=== PATIENT | female | born 1960 | race Caucasian/White ===

== ENCOUNTER 2023-02-28 10:37 | Outpatient (OUT) | payer BC, SELFPAY ==
[2023-02-28 11:00] LABS: Estimated Average Glucose 189 mg/dL; Glycohemoglobin A1C 8.2 % (4.5-6.2)
== END 2023-02-28 10:38 | disposition home or self-care (01) ==
LOC: LAB 10:37
PROVIDERS: PCP Internal Medicine; Visit Provider Internal Medicine
DX: E11.65 Type 2 diabetes mellitus with hyperglycemia (principal)
CPT/HCPCS: 36415; 83036

== ENCOUNTER 2023-07-09 08:59 | Outpatient (OUT) | payer BC, SELFPAY ==
--- OUTSIDE RECORDS SUMMARY | 2023-07-09 09:08 | XMS_ITS | CCD ---
Author Organization [facility] Care Team Providers Care Wax Bleacher Name Role Phone JAMES SMILEY Admitting Unavailable BALL, JAMES Attending Unavailable BALL, JAMES Primary Care Unavailable BALL, JAMES Consulting Unavailable UZMA, VINNIE Admitting Unavailable UZMA, VINNIE Attending Unavailable DWIGHT, JAMES Primary Care Unavailable UZMA, VINNIE Consulting Unavailable UZMA, VINNIE Admitting Unavailable UZMA, VINNIE Attending Unavailable DWIGHT, JAMES Primary Care Unavailable UZMA, VINNIE Consulting Unavailable Dwight, James Unavailable Allergies Allergy Classification Reported Allergen(s) Allergy Type Date of Onset Reaction(s) Facility (1 source) Leucine Drug Allergy [facility] Medications Current Medications Medication Drug Class(es) Dates Sig (Normalized) Sig (Original) 0.25 MG, 0.5 MG Dose 3 ML semaglutide 0.68 MG/ML Pen Injector [Ozempic] (2 sources) Start: 03-05-2023 Ozempic (0.25 or 0.5 MG/DOSE) 2 MG/3ML 0.25MG Subcutaneous weekly for 28 days Feb, Active Accu Check Compact Drum for glucomete (2 sources) Accu Check Dwayne ct Drum for glucomete Use to test home BS transcutaneous qd for 30 days Active atorvastatin 40 mg oral tablet (4 sources) HMG-CoA Reductase Inhibitor take 1 tablet by mouth every twenty-four hours Atorvastatin Calcium 40 MG 1 tablet Orally Once a day Active 0.5 ml dulaglutide 3 mg/ml auto-injector (6 sources) GLP-1 Receptor Agonist inject 1.5 mg by subcutaneous injection every week Trulicity 1.5 MG/0.5ML 1.5mg Subcutaneous weekly Active levothyroxine sodium 0.088 mg oral tablet (11 sources) l-Thyroxine Levothyroxine So dium 88 MCG TAKE 1 (ONE) TABLET DAILY ON AN EMPTY STOMACH for 90 Active Levothyroxine So dium 88 MCG TAKE 1 (ONE) TABLET DAILY ON AN EMPTY STOMACH for 90 Active mounjaro 2.5 mg/0.5ml solution pen-injector (1 source) Start: 05-24-2023 Mounjaro 2.5 MG/0.5ML as directed Subcutaneous weekly for 28 days May, Active olmesartan medoxomil 20 mg oral tablet (7 sources) Angiotensin 2 Receptor Terrell Start: 08-20-2022 take 1 tablet by mouth every twenty-four hours Olmesartan Medoxomil 20 MG 1 tablet Orally Once a day for 30 days August, Active take 1 tablet by mouth once shelley y Olmesartan Medoxomil 40 MG TAKE 1 TABLET BY MOUTH EVERY DAY for 30 Active phentermine hydrochloride 37.5 mg oral tablet (6 sources) Sympathomimetic Amine Anorectic Start: 08-20-2022 take 1 tablet by mouth once daily before breakfast Adipex-P 37.5 MG 1 tablet before breakfast Orally Once a day for 30 days August, Active Start: 07-23-2022 take 1 tablet by obey th every twenty-four hours Adipex-P 37.5 MG 1 tablet Orally Once a day for 30 days Jul, Active Start: 06-25-2022 take 1 tablet by obey th every twenty-four hours Adipex-P 37.5 MG 1 tablet Orally Once a day for 30 days Jun, Active Problems Active Problems Problem Classification Problem Date Documented Da te Episodic/Chronic Coagulation and hemorrhagic disorders (20 sources) Immune thrombocytopenic purpura; Translations: [Immune thrombocytopenic purpura] Resolved: 0 Chronic Deficiency and other anemia (5 sources) Anemia; Translations: [Anemia, unspecified] Episodic Diabetes mellitus with complications (20 sources) Hyperglycemia due to type 2 diabetes mellitus; Translations: [Type 2 diabetes mellitus with hyperglycemia] Chronic Diabetes mellitus without complication (7 sources) Type 2 diabetes mellitus without complication; Translations: [Type 2 diabetes mellitus without complications] Chronic Diseases of white blood cells (16 sources) Leukopenia; Translations: [Decreased white blood cell count, unspecified] Chronic Disorders of lipid metabolism (20 sources) Mixed hyperlipidemia; Translations: [Mixed hyperlipidemia] Onset: 0 Chronic Essential hypertension (20 sources) Essential hypertension; Translations: [Essential (primary) hypertension] Chronic Nausea and vomiting (11 sources) Nausea; Translations: [Nausea] Episodic Osteoarthritis (16 sources) Localized, primary osteoarthritis of the pelvic region and thigh; Translations: [Unilateral primary osteoarthritis, left hip] Chronic Other circulatory disease (2 sources) Elevated blood-pressure reading, without diagnosis of hypertension Episodic Other gastrointestinal disorders (5 sources) Abnormal feces; Translations: [Other fecal abnormalities] Episodic Other nutritional; endocrine; and metabolic disorders (20 sources) Body mass index 30+ - obesity; Translations: [Obesity, unspecified] Chronic Other nutritional; endocrine; and metabolic disorders (2 sources) Obesity, unspecified Chronic Other nutritional; endocrine; and metabolic disorders (12 sources) Obesity; Translations: [Other obesity due to excess calories] Chronic Other nutritional; endocrine; and metabolic disorders (2 sources) Other obesity due to excess calories Chronic Other nutritional; endocrine; and metabolic disorders (1 source) Body mass index (BMI) 31.0-31.9, adult Chronic Other nutritional; endocrine; and metabolic disorders (1 source) Body mass index (BMI) 30.0-30.9, adult Chronic Other screening for suspected conditions (not mental disorders or infectious disease) (1 source) Encounter for screening mammogram for malignant neoplasm of breast Episodic Thyroid disorders (20 sources) Omar thyroiditis; Translations: [Autoimmune thyroiditis] Chronic Unclassified (3 sources) CONTACT W/AND (SUSP) EXPOS COVID-19; Translations: [CONTACT W/AND (SUSP) EXPOS COVID-19] Onset: 2 Past or Other Problems Problem Classification Problem Date Documented Da te Episodic/Chronic Acute bronchitis (5 sources) Acute bronchitis; Translations: [Acute bronchitis, unspecified] Onset: 06-14-2015 Episodic Other aftercare (5 sources) Therapeutic drug level - finding; Translations: [Encounter for therapeutic drug level monitoring] Onset: 12-16-2018 Episodic Other upper respiratory infections (5 sources) Acute maxillary sinusitis; Translations: [Acute maxillary sinusitis, unspecified] Onset: 06-14-2015 Episodic Sprains and strains (5 sources) Sprain of medial collateral ligament of knee; Translations: [Sprain of medial collateral ligament of right knee, initial encounter] Onset: 10-31-2018 Episodic Superficial injury; contusion (5 sources) Contusion of foot; Translations: [Contusion of unspecified foot, initial encounter] Onset: 12-17-2014 Episodic Unclassified (1 source) CONTACT W/AND (SUSP) EXPOS COVID-19; Translations: [CONTACT W/AND (SUSP) EXPOS COVID-19] Onset: 03-07-2022 Results Test Name Value Interpretation Reference Range Facility CBC AUTO DIFFon 06-25-2022 BASO # 0.0 103/ul Normal 0.0-0.1 [facility] Comment on above: Performed By: #### C BC #### [facility] [address] [address] [address] Lauren Matthews Basophils/100 WBC (Bld) 0.5 % Normal 0.2-2.0 [facility] Comment on above: Performed By: #### C BC #### [facility] [address] [place] [address] Dr. Lauren Matthews EO # 0.1 103/ul Normal 0.0-0.7 [facility] Comment on above: Performed By: #### C BC #### [facility] [address] [address] [address] Lauren Matthews Eosinophils/100 WBC (Bld) 2.4 % Normal 0.9-7.0 [facility] Comment on above: Performed By: #### C BC #### [facility] [address] [place] [address] Dr. Lauren Matthews Erythrocyte distribution width (RBC) [Ratio] 13.5 % Normal 11.0-15.0 [facility] Comment on above: Performed By: #### C BC #### [facility] [address] [place] [address] Dr. Lauren Matthews Hematocrit (Bld) [Volume fraction] 40.2 % Normal 36.0-48.0 [facility] Comment on above: Performed By: #### C BC #### [facility] [address] [place] [address] Dr. Lauren Matthews Hemoglobin (Bld) [Mass/Vol] 13.5 g/dL Normal 12.0-16.0 [facility] Comment on above: Performed By: #### C BC #### [facility] [address] [place] [address] Dr. Lauren Matthews IG # 0.01 10e3/ul Normal 0.00-0.03 [facility] Comment on above: Performed By: #### C BC #### [facility] [address] [place] [address] Dr. Lauren Matthews IG % 0.2 % Normal 0.0-0.5 [facility] Comment on above: Performed By: #### C BC #### [facility] [address] [place] [address] Dr. Lauren Matthews LYMPH # 1.2 103/ul Normal 1.2-3.8 [facility] Comment on above: Performed By: #### C BC #### [facility] [address] [place] [address] Dr. Lauren Matthews Lymphocytes/100 WBC (Bld) 28.5 % Normal 20.5-60.0 [facility] Comment on above: Performed By: #### C BC #### [facility] [address] [place] [address] Dr. Lauren Matthews MANUAL DIFF REQ NO Normal [facility] Comment on above: Performed By: #### C BC #### [facility] [address] [place] [address] Dr. Lauren Matthews MCH (RBC) [Entitic mass] 30.5 pg Normal 26.7-34.0 [facility] Comment on above: Performed By: #### C BC #### [facility] [address] [place] [address] Dr. Lauren Matthews MCHC (RBC) [Mass/Vol] 33.6 g/dL Normal 29.9-35.2 [facility] Comment on above: Performed By: #### C BC #### [facility] [address] [place] [address] Dr. Lauren Matthews MCV (RBC) [Entitic vol] 90.7 fL Normal 81.0-99.0 [facility] Comment on above: Performed By: #### C BC #### [facility] [address] [place] [address] Dr. Lauren Matthews MONO # 0.3 103/ul Normal 0.3-0.8 [facility] Comment on above: Performed By: #### C BC #### [facility] [address] [place] [address] Dr. Lauren Matthews Monocytes/100 WBC (Bld) 8.0 % Normal 1.7-12.0 [facility] Comment on above: Performed By: #### C BC #### [facility] [address] [place] [address] Dr. Lauren Matthews NEUT # 2.5 103/ul Normal 1.4-6.5 [facility] Comment on above: Performed By: #### C BC #### [facility] [address] [place] [address] Dr. Lauren Matthews Neutrophils/100 WBC (Bld) 60.4 % Normal 43.0-75.0 [facility] Comment on above: Performed By: #### C BC #### [facility] [address] [place] [address] Dr. Lauren Matthews Platelet mean volume (Bld) [Entitic vol] 12.1 fL Normal 9.5-13.5 [facility] Comment on above: Performed By: #### C BC #### [facility] [address] [place] [address] Dr. Lauren Matthews PLT 169 103/ul Normal 150-450 [facility] Comment on above: Performed By: #### C BC #### [facility] [address] [place] [address] Dr. Lauren Matthews RBC 4.43 106/ul Normal 4.20-5.40 [facility] Comment on above: Performed By: #### C BC #### [facility] [address] [place] [address] Dr. Lauren Matthews WBC 4.1 103/ul Normal 4.0-11.0 [facility] Comment on above: Performed By: #### C BC #### [facility] [address] [place] [address] Dr. Lauren Matthews Comprehensive Metabolic Pane claire 06-25-2022 Albumin [Mass/Vol] 4.438847 g/dL 3.4-5.0 g/dL N [facility] Other Calcium [Mass/Vol] 9.8526712 mg/dL 8.5-10.1 mg/ dL [facility] Other CO2 [Moles/Vol] 28.19884389 mmol/L 21.0-3 2.0 mmol/L [facility] Other Creatinine [Mass/Vol] 0.12044293 mg/dL 0.55-1.02 mg/dL [facility] Other Potassium [Moles/Vol] 4.22380662 mmol/L 3.5-5.1 mmol/L [facility] Other Protein [Mass/Vol] 7.022658 g/dL 6.4-8.2 g/dL N [facility] Other Urea nitrogen [Mass/Vol] 13.4693023 mg/dL 7.0-18.0 mg/dL [facility] Other Comprehensive Metabolic Panel see note [facility] Other Comprehensive Metabolic Panel 143 mmol/L 136-145 mmol/L [facility] Other Comprehensive Metabolic Panel 140 mg/dL Critically high 74-106 mg/dL [facility] Other Comprehensive Metabolic Panel >60 mL/min/1.73m2 >=60 mL/min/1.73m2 [facility] Other Comprehensive Metabolic Panel 0.5 mg/dL 0.2-1.0 mg/dL [facility] Other Comprehensive Metabolic Panel 3.2 g/dL [facility] Other GLYCOHEMOGLOBIN A1Con 2022 ADA RECOMMENDATION SEE BELOW Normal [facility] Comment on above: Result Comment: ADA RECOMMENDED LIMIT 4.0 - 6.0 ADA THERAPEUTIC TARGET < 7.0 ACTION SUGGESTED > 7.0 Performed By: #### A 1C #### [facility] [address] [place] [address] Dr. Lauren Matthews Glucose [Mass/Vol] 131 mg/dL Normal [facility] Comment on above: Performed By: #### A 1C #### [facility] [address] [address] [address] Lauren Matthews HbA1c (Bld) [Mass fraction] 6.2 % Normal 4.5-6.2 [facility] Comment on above: Performed By: #### A 1C #### [facility] [address] [address] [address] Lauren Matthews LIPID PROFILEon 06-25-2022 CHOL-HDL RATIO NORM SEE BELOW Normal [facility] Comment on above: Result Comment: 3.3 - 4.4 LOW RISK 4.4 - 7.1 AVERAGE RISK 7.1 - 11.0 MODERATE RISK >11.0 HIGH RISK Performed By: #### C MP, LIPID, TSH #### [facility] [address] [address] [address] Lauren Matthews Cholesterol [Mass/Vol] 218 mg/dL Critically high <=200 mg/dL [facility] Comment on above: Performed By: #### C MP, LIPID, TSH #### [facility] [address] [address] [address] Lauren Matthews Cholesterol in HDL [Mass/Vol] 47 mg/dL 40-60 mg/dL [facility] Comment on above: Performed By: #### C MP, LIPID, TSH #### [facility] [address] [address] [address] Lauren Matthews Cholesterol in LDL [Mass/Vol] 155.8 mg/dL Normal [facility] Comment on above: Performed By: #### C MP, LIPID, TSH #### [facility] [address] [address] [address] Lauren Matthews Cholesterol.total/Ch olesterol in HDL [Mass ratio] 4.6 {ratio} [facility] Comment on above: Performed By: #### C MP, LIPID, TSH #### [facility] [address] [address] [address] Lauren Matthews HDL NORMAL > or = 60 mg/dl - LOW CARDIOVASCULAR RISK <40 mg/dl - HIGH CARDIOVASCULAR RISK Normal [facility] Comment on above: Performed By: #### C MP, LIPID, TSH #### [facility] [address] [address] [address] Lauren Matthews LDL CALC NORMAL SEE BELOW Normal [facility] Comment on above: Result Comment: <100 mg/dl OPTIMAL 100 - 129 mg/dl NEAR OR ABOVE OPTIMAL 130 - 159 mg/dl BORDERLINE HIGH 160 - 189 mg/dl HIGH >190 mg/dl VERY HIGH Performed By: #### C MP, LIPID, TSH #### [facility] [address] [address] [address] Lauren Matthews Triglyceride [Mass/Vol] 76 mg/dL <=150 mg/dL [facility] Comment on above: Performed By: #### C MP, LIPID, TSH #### [facility] [address] [address] [address] Lauren Matthews VLDL CALC 15.2 mg/dL Normal [facility] Comment on above: Performed By: #### C MP, LIPID, TSH #### [facility] [address] [address] [address] Lauren Mathtews Lipid Panelon 06-25-2022 Lipid Panel > or = 60 mg/dl - LOW CARDIOVASCULAR RISK <40 mg/dl - HIGH CARDIOVASCULAR RISK [facility] Other Lipid Panel SEE BELOW [facility] Other Lipid Panel 155.8 mg/dL [facility] Other Lipid Panel 15.2 mg/dL [facility] Other PROF 14(COMP METB)on 023 Albumin [Mass/Vol] 4.0 g/dL Normal 3.4-5.0 [facility] Comment on above: Performed By: #### C MP, LIPID, TSH #### [facility] [address] [address] [address] Lauren Matthews Albumin/Globulin [Mass ratio] 1.3 {ratio} [facility] Comment on above: Performed By: #### C MP, LIPID, TSH #### [facility] [address] [address] [address] Lauren Matthews ALP [Catalytic activity/Vol] 62 U/L 46-116 U/L [facility] Comment on above: Performed By: #### C MP, LIPID, TSH #### [facility] [address] [address] [address] Lauren Matthews ALT [Catalytic activity/Vol] 19 U/L 14-59 U/L [facility] Comment on above: Performed By: #### C MP, LIPID, TSH #### [facility] [address] [address] [address] Lauren Matthews Anion gap [Moles/Vol] 13.6 mmol/L [facility] Comment on above: Performed By: #### C MP, LIPID, TSH #### [facility] [address] [place] [address] Dr. Lauren Matthews AST [Catalytic activity/Vol] 22 U/L 15-37 U/L [facility] Comment on above: Performed By: #### C MP, LIPID, TSH #### [facility] [address] [address] [address] Lauren Matthews Bilirubin [Mass/Vol] 0.5 mg/dL Normal 0.2-1.0 [facility] Comment on above: Performed By: #### C MP, LIPID, TSH #### [facility] [address] [place] [address] Dr. Lauren Matthews Calcium [Mass/Vol] 9.1 mg/dL Normal 8.5-10.1 [facility] Comment on above: Performed By: #### C MP, LIPID, TSH #### [facility] [address] [place] [address] Dr. Lauren Matthews Chloride [Moles/Vol] 105 mmol/L 98-107 mmol/L [facility] Comment on above: Performed By: #### C MP, LIPID, TSH #### [facility] [address] [place] [address] Dr. Lauren Matthews CO2 [Moles/Vol] 28.6 mmol/L Normal 21.0-32.0 [facility] Comment on above: Performed By: #### C MP, LIPID, TSH #### [facility] [address] [address] [address] Lauren Matthews Creatinine [Mass/Vol] 0.60 mg/dL Normal 0.55-1.02 [facility] Comment on above: Performed By: #### C MP, LIPID, TSH #### [facility] [address] [address] [address] Lauren Matthews EGFR-AF UGANDAN >60 Normal >=60 [facility] Comment on above: Performed By: #### C MP, LIPID, TSH #### [facility] [address] [address] [address] Lauren Matthews EGFR-NON AF UGANDAN >60 Normal >=60 [facility] Comment on above: Performed By: #### C MP, LIPID, TSH #### [facility] [address] [address] [address] Lauren Matthews Globulin (S) [Mass/Vol] 3.2 g/dL Normal [facility] Comment on above: Performed By: #### C MP, LIPID, TSH #### [facility] [address] [address] [address] Lauren Matthews Glucose [Mass/Vol] 140 mg/dL Critically high 74-106 [facility] Comment on above: Performed By: #### C MP, LIPID, TSH #### [facility] [address] [address] [address] Lauren Matthews Potassium [Moles/Vol] 4.2 mmol/L Normal 3.5-5.1 [facility] Comment on above: Performed By: #### C MP, LIPID, TSH #### [facility] [address] [address] [address] Lauren Matthews Protein [Mass/Vol] 7.2 g/dL Normal 6.4-8.2 [facility] Comment on above: Performed By: #### C MP, LIPID, TSH #### [facility] [address] [address] [address] Lauren Matthews Sodium [Moles/Vol] 143 mmol/L Normal 136-145 [facility] Comment on above: Performed By: #### C MP, LIPID, TSH #### [facility] [address] [place] [address] Dr. Lauren Matthews Urea nitrogen [Mass/Vol] 13.0 mg/dL Normal 7.0-18.0 [facility] Comment on above: Performed By: #### C MP, LIPID, TSH #### [facility] [address] [place] [address] Dr. Lauren Matthews Urea nitrogen/Creatinine [Mass ratio] 21.7 mg/mg [facility] Comment on above: Performed By: #### C MP, LIPID, TSH #### [facility] [address] [place] [address] Dr. Lauren Matthews TSHon 06-25-2022 TSH 0.916 uIU/mL Normal 0.358-3.740 [facility] Comment on above: Performed By: #### C MP, LIPID, TSH #### [facility] [address] [place] [address] Dr. Lauren Matthews [facility] SARS-CoV-2 (COVID-19) RNA PRAVIN+probe Ql (Unsp spec) Not detected Normal NOT DETECTED [facility] Comment on above: Result Comment: When diagnostic testing is negative, the possibility of a false negative should be considered in the context of a patient's recent exposures and the presence of clinical signs and symptoms consistent with SARS-CoV-2. This test is not yet approved or cleared by the [place] FDA. When there are no FDA-approved or cleared tests available, and other criteria are met, FDA can make tests available under an emergency access mechanism called an Emergency Use Authorization (EUA). The EUA for this test is supported by the [place] of Health and Human Service's declaration that circumstances exist to justify the emergency use of in vitro diagnostics for the detection and/or diagnosis of the virus that causes COVID-19. This EUA will remain in effect for the duration of the COVID-19 declaration justifying emergency of IVDs, unless it is terminated or revoked by the FDA (after which the test may no longer be used). Performed By: #### C VDTBH #### [facility] [address] [place] [address] Dr. Lauren Matthews ASYMPTOMATIC COVID-19 ANTIGE Non 01-15-2022 EUA Statement SEE BELOW Normal [facility] Comment on above: Result Comment: This test has not been FDA cleared or approved, but has been authorized by the FDA under an Emergency Use Authorization (EUA) for use by authorized laboratories certified under CLIA that meet the requirements to perform moderate or high complexity testing. This test has been authorized only for the detection of proteins from SARS-CoV-2, not for any other viruses or pathogens. The emergency use of this test is authorized for the duration of the declaration that circumstances exist justifying the authorization of emergency use of in vitro diagnostic tests for detection and/or diagnosis of Covid-19 under section 564(b)(1) of the Act, 21 U.S.C. 360bbb-3(b)(1), unless the declaration is terminated or authorization is revoked sooner. Performed By: #### C VDAGA #### [facility] [address] [place] [address] Dr. Lauren Matthews SARS-CoV-2 (COVID-19) RNA PRAVIN+probe Ql (Unsp spec) Negative Normal NEGATIVE [facility] Comment on above: Result Comment: Nega tive results are presumptive. They do not preclude infection and should not be used as the sole basis for treatment decisions. Additional confirmatory testing by a molecular method should be considered. Performed By: #### C VDAGA #### [facility] [address] [place], [place] [id number] Dr. Lauren Matthews Vital Signs Date Time Vital Sign Value Performing Clinician Facility 11-22-2022 11:30-0400 Body height 167.64 cm Knip Other [facility] Other 11-22-2022 11:30-0400 Body mass index (BMI) [Ratio] 30.92 kg/m2 [facility] Other [facility] Other 11-22-2022 11:30-0400 Body weight 86.91 kg James Ball Other [facility] Other 11-22-2022 11:30-0400 Diastolic blood pressure 91 mm[Hg] James Ball Other [facility] Other 11-22-2022 11:30-0400 Respiratory rate 12 /min James Ball Other [facility] Other 11-22-2022 11:30-0400 Systolic blood pressure 167 mm[Hg] James Ball Other [facility] Other 08-20-2022 12:30-0400 Body height 167.64 cm James Ball Other [facility] Other 08-20-2022 12:30-0400 Body mass index (BMI) [Ratio] 31.21 kg/m2 James Ball Other [facility] Other 08-20-2022 12:30-0400 Body weight 87.73 kg James Ball Other [facility] Other 08-20-2022 12:30-0400 Diastolic blood pressure 88 mm[Hg] James Ball Other [facility] Other 08-20-2022 12:30-0400 Respiratory rate 12 /min James Ball Other [facility] Other 08-20-2022 12:30-0400 Systolic blood pressure 167 mm[Hg] James Ball Other [facility] Other 07-23-2022 12:30-0400 Body height 167.64 cm James Ball Other [facility] Other 07-23-2022 12:30-0400 Body mass index (BMI) [Ratio] 30.92 kg/m2 James Ball Other [facility] Other 07-23-2022 12:30-0400 Body weight 86.91 kg James Ball Other [facility] Other 07-23-2022 12:30-0400 Diastolic blood pressure 82 mm[Hg] James Ball Other [facility] Other 07-23-2022 12:30-0400 Respiratory rate 12 /min James Ball Other [facility] Other 07-23-2022 12:30-0400 Systolic blood pressure 124 mm[Hg] James Ball Other [facility] Other 06-25-2022 13:30-0500 Body height 167.64 cm James Ball Other [facility] Other 06-25-2022 13:30-0500 Body mass index (BMI) [Ratio] 31.89 kg/m2 James Ball Other [facility] Other 06-25-2022 13:30-0500 Body weight 89.63 kg James Ball Other [facility] Other 06-25-2022 13:30-0500 Diastolic blood pressure 80 mm[Hg] James Ball Other [facility] Other 06-25-2022 13:30-0500 Respiratory rate 12 /min James Ball Other [facility] Other 06-25-2022 13:30-0500 Systolic blood pressure 122 mm[Hg] James Ball Other [facility] Other Encounters Encounter Date Encounter Type Care Provider Facility Start: 05-24-2023 End: 05-24-2023 ambulatory James Ball Other [facility] Other Start: 05-24-2023 Telephone encounter James Ball [facility] Start: 03-07-2023 End: 03-07-2023 ambulatory James Ball Other [facility] Other Start: 03-07-2023 Telephone encounter James Ball [facility] Start: 02-28-2023 End: 02-28-2023 ambulatory James Ball Other [facility] Other Start: 02-28-2023 Telephone encounter James Ball [facility] Start: 02-26-2023 End: 02-26-2023 ambulatory James Ball Other [facility] Other Start: 02-26-2023 Telephone encounter James Ball [facility] Start: 11-22-2022 End: 11-22-2022 ambulatory James Ball Other [facility] Other Start: 11-22-2022 Office outpatient vi sit 15 minutes James Ball [facility] Start: 10-09-2022 End: 10-09-2022 ambulatory James Ball Other [facility] Other Start: 10-09-2022 Telephone encounter James Ball [facility] Start: 08-20-2022 End: 08-20-2022 ambulatory James Ball Other [facility] Other Start: 08-20-2022 Office outpatient vi sit 15 minutes James Ball [facility] Start: 07-23-2022 End: 07-23-2022 ambulatory James Ball Other [facility] Other Start: 07-23-2022 Office outpatient vi sit 15 minutes James Ball [facility] Start: 06-26-2022 Encounter for genera l adult medical examination without abnormal findings JAMES BALL [facility] Start: 06-25-2022 End: 06-26-2022 Encounter for general adult medical examination without abnormal findings JAMES SMILEY Facility:[facility] Start: 06-25-2022 Periodic preventive med est patient 40-64yrs James Smiley [facility] Start: 06-25-2022 End: 06-26-2022 ambulatory JAMES SMILEY Facility:[facility] Start: 06-23-2022 End: 06-23-2022 ambulatory James Smiley Other [facility] Other Start: 06-23-2022 Encounter for genera l adult medical examination without abnormal findings James Smiley [facility] Start: 06-23-2022 Telephone encounter James Smiley [facility] Start: 06-22-2022 End: 06-22-2022 ambulatory James Smiley Other [facility] Other Start: 06-22-2022 Telephone encounter James Smiley [facility] Start: 03-07-2022 End: 03-08-2022 ambulatory VINNIE GUSMAN Facility:[facility] Start: 01-15-2022 End: 01-15-2022 ambulatory VINNIE GUSMAN Facility:[facility] Start: 05-17-2021 Adult health examination James Smiley Other [facility] Other Procedures Date Procedure Procedure Detail Performing Clinician Depression screening Scarlett Smiley Other Screening for malign ant neoplasm of breast James Smiley Other Immunizations Immunization Date Immunization Notes Care Provider Maira carrington 02-23-2013 tetanus and diphther ia toxoids, adsorbed, preservative free, for adult use (5 Lf of tetanus toxoid and 2 Lf of diphtheria toxoid) James Smiley Other [facility] Other Payers Date Payer Category Payer Unknown [id number] 2019 Unknown [id number] 1960 Unknown [id number] 1960 Unknown [id number] 1960 Unknown [id number] Social History Date Type Detail Facility Sex Assigned At [facility] Other Clinical Notes 06-23-2022 to 05-24-2023 Note Date & Type Note Facility 05-24-2023 Evaluation note Encounter Date Diagnosis Assessment Notes May, Controlled type 2 diabetes mellitus with hyperglycemia, without long-term current use of insulin (ICD-10 - E11.65) [facility] Other 11-16-2023 Evaluation note* Encounter Date Diagnosis Assessment Notes Treatment Notes Treatment Clinical Notes Feb, Type 2 diabetes mellitus with hyperglycemia, without long-term current use of insulin (ICD-10 - E11.65) [facility] Other 11-09-2023 Evaluation note* Encounter Date Diagnosis Assessment Notes Treatment Notes Treatment Clinical Notes Feb, Type 2 diabetes mellitus with hyperglycemia, without long-term current use of insulin (ICD-10 - E11.65) [facility] Other 11-07-2023 Evaluation note* Encounter Date Diagnosis Assessment Notes Treatment Notes Treatment Clinical Notes Feb, Type 2 diabetes mellitus with hyperglycemia (ICD-10 - E11.65) This patient is following a comprehensive diabetic treatment plan. They are checking their feet daily and scheduling a dilated eye exam yearly. Goals: SBP<130, LDL<100, BS<140 AC, A1C<7% They are checking their BS daily, alternating times. Much improved w/ weight loss. D/c Trulicity and monitor FBS [facility] Other 08-03-2023 Evaluation note* Encounter Date Diagnosis Assessment Notes Treatment Notes Treatment Clinical Notes Nov, Primary hypertension (ICD-10 - I10) This patient is instructed to consume a healthy, low-fat, low-salt diet. They are also encouraged to continue exercise to achieve/maintain a normal BMI. Patient is instructed on home BP measurements: - rest for 5 minutes w/o talking- positioned w/ feet on floor and arm supported- average best 2/3 readings w/ goal < 135-85 Increase Olmesartan to 40 Nov, Type 2 diabetes mellitus without complications (ICD-10 - E11.9) This patient is following a comprehensive diabetic treatment plan. They are checking their feet daily for calluses and nonhealing ulcers. They are being seen for yearly dilated eye examinations. Goals: SBP less than 130, LDL less than 100, FBS less than 140, AC and A1C less than 7%. They are checking their BS daily, will which are reviewed at the office visit. Continue regular routine monitoring of A1C,] Microalbumin, Dilated eye exam and Foot exam Nov, Other obesity due to excess calories (ICD-10 - E66.09) This patient has been instructed on a low-fat, high-fiber diet. They are instructed to reduce calories, portion sizes and snacks. It is recommended that they exercise for 30 minutes, 3-5 times weekly. Nov, Body mass index [BMI] 30.0-30.9, adult (ICD-10 - Z68.30) [facility] Other 05-01-2023 Evaluation note* Encounter Date Diagnosis Assessment Notes Treatment Notes Treatment Clinical Notes August, Type 2 diabetes mellitus with hyperglycemia, without long-term current use of insulin (ICD-10 - E11.65) This patient is following a comprehensive diabetic treatment plan. They are checking their feet daily for calluses and nonhealing ulcers. They are being seen for yearly dilated eye examinations. Goals: SBP less than 130, LDL less than 100, FBS less than 140, AC and A1C less than 7%. They are checking their BS daily, will which are reviewed at the office visit. August, Elevated BP without diagnosis of hypertension (ICD-10 - R03.0) This patient is instructed to consume a healthy, low-fat, low-salt diet. They are also encouraged to continue exercise to achieve/maintain a normal BMI. Initiate Olmesartand for BP control as well as renal protective benefits in diabetics. August, Other obesity due to excess calories (ICD-10 - E66.09) This patient has been instructed on a low-fat, high-fiber diet. They are instructed to reduce calories, portion sizes and snacks. It is recommended that they exercise for 30 minutes, 3-5 times weekly. Holding Adipex until BP controlled, then start 1/2 tab and monitor BP closely August, Body mass index [BMI] 31.0-31.9, adult (ICD-10 - Z68.31) [facility] Other 04-03-2023 Evaluation note* Encounter Date Diagnosis Assessment Notes Treatment Notes Treatment Clinical Notes Jul, Type 2 diabetes mellitus with hyperglycemia, without long-term current use of insulin (ICD-10 - E11.65) Continue present treatment. Discussed use of GLP-1 to help w/ diabetes and weight loss Jul, Obesity (BMI 30-39.9) (ICD-10 - E66.9) This patient has been instructed on a low-fat, high-fiber diet. They are instructed to reduce calories, portion sizes and snacks. It is recommended that they exercise for 30 minutes, 3-5 times weekly. Jul, Elevated BP without diagnosis of hypertension (ICD-10 - R03.0) This patient is instructed to consume a healthy, low-fat, low-salt diet. They are also encouraged to continue exercise to achieve/maintain a normal BMI. Check BP at home and update office w/ results. If BP remains elevated, instructed to call office and hold Adipex [facility] Other 03-06-2023 Evaluation note* Encounter Date Diagnosis Assessment Notes Treatment Notes Treatment Clinical Notes Jun, Wellness examination (ICD-10 - Z00.00) Healthy diet and exercise. Reviewed age-appropriate preventive testing recommended. Reviewed labs - good results except for LDL, which is above goal of 100 Jun, Type 2 diabetes mellitus with hyperglycemia, without long-term current use of insulin (ICD-10 - E11.65) This patient is following a comprehensive diabetic treatment plan. They are checking their feet daily for calluses and nonhealing ulcers. They are being seen for yearly dilated eye examinations. Goals: SBP less than 130, LDL less than 100, FBS less than 140, AC and A1C less than 7%. They are checking their BS daily, will which are reviewed at the office visit. Jun, Obesity (BMI 30-39.9) (ICD-10 - E66.9) This patient has been instructed on a low-fat, high-fiber diet. They are instructed to reduce calories, portion sizes and snacks. It is recommended that they exercise for 30 minutes, 3-5 times weekly. Jun, Screening mammogram for breast cancer (ICD-10 - Z12.31) [facility] Other 03-04-2023 Evaluation note* Encounter Date Diagnosis Assessment Notes Treatment Notes Treatment Clinical Notes Jun, Wellness examination (ICD-10 - Z00.00) [facility] Other Evaluation noteNo InformationNort [facility] Other History general Narrative - Reported* Type Description Date Medical History Nausea Medical History Controlled type 2 di abetes mellitus with hyperglycemia, without long-term current use of insulin Medical History Essential hypertension Medical History Acquired autoimmune hypothyroidi sm Medical History Leukopenia Medical History Hyperlipemia, mixed Medical History Idiopathic thrombocytopenia Medical History Primary osteoarthritis of left h ip Surgical History Colonoscopy 04/2019 Surgical History TALYA Left 02/25/2013 Hospitalization History see surgical history [facility] Other Summary Purpose Family History No Family History Records Found Advance Directives No Advanced Directives Records Found Additional Source Comments INFORMATION SOURCE (unrecogn ized section and content) DATE CREATED AUTHOR 06/27/2022 [facility] REASON FOR VISIT (unrecogniz ed section and content) prescription refillNo Inform ationwellness1 month Follow up1 month Follow upTrulicity3 month Follow uplab ourerA3B resultsrefillMedication Change FOR RECORDS PERTAINING TO PATIENTS WHO ARE OR HAVE BEEN ENROLLED IN A CHEMICAL DEPENDENCY/SUBSTANCEABUSE PROGRAM, SOME INFORMATION MAY BE OMITTED. This clinical summary was aggregated from multiple sources. Caution should be exercised in using it in the provision of clinical care. This summary normalizes information from multiple sources, and as a consequence, information in this document may materially change the coding, format and clinical context of patient data. In addition, data may be omitted in some cases. CLINICAL DECISIONS SHOULD BE BASED ON THE PRIMARY CLINICAL RECORDS. [employer] provides no warranty or guarantee of the accuracy or completeness of information in this document.
[2023-07-09 09:38] LABS: Estimated Average Glucose 154 mg/dL
[2023-07-09 09:39] LABS: Microalbumin Urine Random 1.3 mg/dL (<=30.0)
[2023-07-09 10:27] LABS: Alanine Aminotransferase 25 U/L (14-59); Albumin Globulin Ratio 1.1; Albumin Level 3.5 g/dL (3.4-5.0); Alkaline Phosphatase 56 U/L (46-116); Anion Gap 12.7; Aspartate Amino Transferase 13 U/L (15-37); BUN Creatinine Ratio 18.1; Bilirubin Total 0.4 mg/dL (0.2-1.0); Calcium 8.3 mg/dL (8.5-10.1); Carbon Dioxide 28.1 mmol/L (21.0-32.0); Chloride 105 mmol/L (98-107); Chol HDL Ratio 4.6; Cholesterol 197 mg/dL (<=200); Estimated GFR (African America >60 (>=60); Estimated GFR (Non-African Ame >60 (>=60); Globulin 3.1 g/dL; Glucose 141 mg/dL (74-106); HDL Cholesterol 43 mg/dL (40-60); LDL Cholesterol Calculated 137.4 mg/dL; Potassium 3.8 mmol/L (3.5-5.1); Sodium 142 mmol/L (136-145); Total Protein 6.6 g/dL (6.4-8.2); Triglycerides 83 mg/dL (<=150); VLDL CHOLESTEROL 16.6 mg/dL
[2023-07-09 10:30] LABS: Basophils Percent Auto 0.6 % (0.2-2.0); Eosinophils Absolute Auto 0.3 10^3/uL (0.0-0.7); Eosinophils Percent Auto 5.2 % (0.9-7.0); Hematocrit 39.1 % (36.0-48.0); Hemoglobin 12.6 g/dL (12.0-16.0); Immature Granulocytes Abs Auto 0.01 10^3/uL (0.00-0.03); Immature Granulocytes Pct Auto 0.2 % (0.0-0.5); Lymphocytes Absolute Auto 1.1 10^3/uL (1.2-3.8); Lymphocytes Percent Auto 21.8 % (20.5-60.0); Mean Corpuscular HGB Conc 32.2 g/dL (29.9-35.2); Mean Corpuscular Hemoglobin 30.7 pg (26.7-34.0); Mean Corpuscular Volume 95.4 fL (81.0-99.0); Mean Platelet Volume 12.9 fL (9.5-13.5); Monocytes Absolute Auto 0.4 10^3/uL (0.3-0.8); Monocytes Percent Auto 8.9 % (1.7-12.0); Neutrophils Percent Auto 63.3 % (43.0-75.0); Platelet Count 160 10^3/uL (150-450); Red Cell Distribution Width 13.3 % (11.0-15.0); White Blood Count 4.8 10^3/uL (4.0-11.0)
== END 2023-07-09 09:00 | disposition home or self-care (01) ==
LOC: LAB 09:02
PROVIDERS: PCP Internal Medicine; Visit Provider Internal Medicine
DX: Z00.00 Encounter for general adult medical examination without abnormal findings (principal); E11.65 Type 2 diabetes mellitus with hyperglycemia
CPT/HCPCS: 36415; 80053; 80061; 82043; 83036; 84443; 85025

== ENCOUNTER 2024-01-29 10:38 | Outpatient (OUT) | payer BC, SELFPAY ==
--- NOTE | 2024-01-29 | XR_ITS ---
The [address] [address] Patient Name: KIMBERLYN FLOR MRN: [id number] date: 1960 Sex: F Assigned Patient Location: [facility] Current Patient Location: Accession/Order Number: [id number] Exam Date: 01/29/2024 10:41 Report Date: 01/30/2024 08:16 At the request of: MARGAUX BARRERA Procedure: XR ankle RT min 3V PROCEDURE: XR ankle RT min 3V HISTORY: RIGHT ANKLE PAIN COMPARISON: None. FINDINGS: BONES:Small corticated separate ossification distal to the lateral malleolus; likely sequela of remote injury/heterotopic bone formation. Uniform spacing of the ankle joint with smooth articular surfaces. Moderate size degenerative disease of findings at the plantar aponeurosis and Achilles tendon insertions into the calcaneus. SOFT TISSUES:Mild soft tissue swelling medially. EFFUSION:None visible. OTHER: Negative. XR/XR ankle RT min 3V IMPRESSION: 1. No appreciable acute abnormality. 2. Mild degenerative changes. Electronically authenticated by: AL CHAVEZ Date: 01/30/2024 08:16
--- OUTSIDE RECORDS SUMMARY | 2024-01-29 10:42 | XMS_ITS | CCD ---
Author Organization [facility] Care Team Providers Care Recruitment Advertising Manager Name Role Phone JAMES SMILEY Admitting Unavailable BALL, JAMES Attending Unavailable BALL, JAMES Primary Care Unavailable BALL, JAMES Consulting Unavailable UZMA, VINNIE Admitting Unavailable UZMA, VINNIE Attending Unavailable BALL, JAMES Primary Care Unavailable UZMA, VINNIE Consulting Unavailable UZMA, VINNIE Admitting Unavailable UZMA, VINNIE Attending Unavailable BALL, JAMES Primary Care Unavailable UZMA, VINNIE Consulting Unavailable Dwight, James Unavailable LORENZO JUAREZ Attending Unavailable Allergies Allergy Classification Reported Allergen(s) Allergy Type Date of Onset Reaction(s) Facility (1 source) Leucine Drug Allergy [facility] Repository Medications Current Medications Medication Drug [...] Active levothyroxine sodium 0.088 mg oral tablet (12 sources) l-Thyroxine Start: 07-04-2023 take 88 ug by mouth once daily Levothyroxine Active 88 MCG PO Daily July 04, 2023 12:00am ON AN EMPTY STOMACH Levothyroxine So dium 88 MCG TAKE 1 (ONE) TABLET DAILY ON AN EMPTY STOMACH for 90 Active Levothyroxine So dium 88 MCG TAKE 1 (ONE) TABLET DAILY ON AN EMPTY STOMACH for 90 Active mounjaro 2.5 mg/0.5ml solution pen-injector (1 source) Start: 05-24-2023 Mounjaro 2.5 MG/0.5ML as directed Subcutaneous weekly for 28 days May, Active phentermine hydrochloride 37.5 mg oral tablet [...] a day for 30 days Jun, Active Tirzepatide (5 sources) Start: 07-05-2023 Tirzepatide (M zafarro) 2.5 mg/0.5 mL pen injector Active 2.5 MG SUBCUT every week July 05, 2023 12:00am Start: 07-01-2023 End: 07-04-2023 Tirzepatide (Mounjaro) 2.5 m g/0.5 mL pen injector Discontinued 2.5 MG SUBCUT every week 06 19July 01, 2023 12:42pm July 04, 2023 4:43pm Start: 07-01-2023 End: 07-01-2023 Tirzepatide (Mounjaro) 2.5 m g/0.5 mL pen injector Discontinued 5 MG SUBCUT every week July 01, 2023 9:41am July 01, 2023 12:43pm Start: 06-24-2023 End: 07-01-2023 Tirzepatide (Mounjaro) 2.5 m g/0.5 mL pen injector Discontinued 0 .ROUTE .COMPLEX 2 June 24, 2023 1:59pm July 01, 2023 9:42am INJECT DIRECTED UNDER THE SKIN ONCE WEEKLY Start: 06-24-2023 End: 06-24-2023 Tirzepatide (Mounjaro) 2.5 m g/0.5 mL pen injector Discontinued 2.5 MG SUBCUT every week June 24, 2023 1:00am June 24, 2023 2:00pm Completed/Discontinued Medications Medication Drug Class(es) Dates Sig (Normalized) Sig (Original) olmesartan medoxomil 40 mg oral tablet (8 sources) Angiotensin 2 Receptor Terrell Start: 07-04-2023 End: 07-05-2023 take 40 mg by mouth once daily Olmesartan Discontinued 40 MG PO Daily July 04, 2023 12:00am July 05, 2023 1:40pm Start: 08-20-2022 take 1 tablet by obey th every twenty-four hours Olmesartan Medoxomil 20 MG 1 tablet Orally Once a day for 30 days August, Active take 1 tablet by mouth once shelley y Olmesartan Medoxomil 40 MG TAKE 1 TABLET BY MOUTH EVERY DAY for 30 Active Problems Active Problems Problem Classification Problem [...] Mixed hyperlipidemia; Translations: [Mixed hyperlipidemia] Onset: 0 07-04-2023 Chronic Essential hypertension (20 sources) Essential hypertension; [...] conditions (not mental disorders or infectious disease) (2 sources) Encounter for screening mammogram for malignant neoplasm of breast; Translations: [Other screening mammogram] Episodic Thyroid disorders (20 sources) Omar thyroiditis; Translations: [Autoimmune thyroiditis] 07-04-2023 Chronic Unclassified (3 sources) CONTACT W/AND (SUSP) [...] 06-25-2022 BASO # 0.0 103/ul Normal 0.0-0.1 [facility] Comment on above: Performed By: #### C BC #### [facility] [address] [place] [address] Dr. Laurne Matthews Basophils/100 WBC (Bld) 0.5 % Normal 0.2-2.0 [facility] Comment on above: Performed By: #### C BC #### [facility] [address] [place] [address] Dr. Lauren Matthews EO # 0.1 103/ul Normal 0.0-0.7 [facility] Comment on above: Performed By: #### C BC #### [facility] [address] [place] [address] Dr. Lauren Matthews Eosinophils/100 WBC (Bld) 2.4 % Normal 0.9-7.0 [facility] Comment on above: Performed By: #### C BC #### [facility] [address] [place] [address] Dr. Lauren Matthews Erythrocyte distribution width (RBC) [Ratio] 13.5 % Normal 11.0-15.0 [facility] Comment on above: Performed By: #### C BC #### [facility] [address] [place] [address] Dr. Lauren Matthews Hematocrit (Bld) [Volume fraction] 40.2 % Normal 36.0-48.0 [facility] Comment on above: Performed By: #### C BC #### [facility] [address] [place] [address] Dr. Lauren Matthews Hemoglobin (Bld) [Mass/Vol] 13.5 g/dL Normal 12.0-16.0 [facility] Comment on above: Performed By: #### C BC #### [facility] [address] [place] [address] Dr. Lauren Matthews IG # 0.01 10e3/ul Normal 0.00-0.03 [facility] Comment on above: Performed By: #### C BC #### [facility] [address] [place] [address] Dr. Lauren Matthews IG % 0.2 % Normal 0.0-0.5 [facility] Comment on above: Performed By: #### C BC #### [facility] [address] [place] [address] Dr. Lauren Matthews LYMPH # 1.2 103/ul Normal 1.2-3.8 [facility] Comment on above: Performed By: #### C BC #### [facility] [address] [place] [address] Dr. Lauren Matthews Lymphocytes/100 WBC (Bld) 28.5 % Normal 20.5-60.0 [facility] Comment on above: Performed By: #### C BC #### [facility] [address] [place] [address] Dr. Lauren Matthews MANUAL DIFF REQ NO Normal [facility] Comment on above: Performed By: #### C BC #### [facility] [address] [place] [address] Dr. Lauren Matthews MCH (RBC) [Entitic mass] 30.5 pg Normal 26.7-34.0 [facility] Comment on above: Performed By: #### C BC #### [facility] [address] [place] [address] Dr. Lauren Matthews MCHC (RBC) [Mass/Vol] 33.6 g/dL Normal 29.9-35.2 [facility] Comment on above: Performed By: #### C BC #### [facility] [address] [place] [address] Dr. Lauren Matthews MCV (RBC) [Entitic vol] 90.7 fL Normal 81.0-99.0 [facility] Comment on above: Performed By: #### C BC #### [facility] [address] [place] [address] Dr. Lauren Matthews MONO # 0.3 103/ul Normal 0.3-0.8 [facility] Comment on above: Performed By: #### C BC #### [facility] [address] [place] [address] Dr. Lauren Matthews Monocytes/100 WBC (Bld) 8.0 % Normal 1.7-12.0 [facility] Comment on above: Performed By: #### C BC #### [facility] [address] [place] [address] Dr. Lauren Matthews NEUT # 2.5 103/ul Normal 1.4-6.5 [facility] Comment on above: Performed By: #### C BC #### [facility] [address] [place] [address] Dr. Lauren Matthews Neutrophils/100 WBC (Bld) 60.4 % Normal 43.0-75.0 [facility] Comment on above: Performed By: #### C BC #### [facility] [address] [place] [address] Dr. Lauren Matthews Platelet mean volume (Bld) [Entitic vol] 12.1 fL Normal 9.5-13.5 [facility] Comment on above: Performed By: #### C BC #### [facility] [address] [place] [address] Dr. Lauren Matthews PLT 169 103/ul Normal 150-450 [facility] Comment on above: Performed By: #### C BC #### [facility] [address] [place] [address] Dr. Lauren Matthews RBC 4.43 106/ul Normal 4.20-5.40 [facility] Comment on above: Performed By: #### C BC #### [facility] [address] [place] [address] Dr. Lauren Matthews WBC 4.1 103/ul Normal 4.0-11.0 [facility] Comment on above: Performed By: #### C BC #### [facility] [address] [place] [address] Dr. Lauren Matthews [facility] Metabolic Pane claire 06-25-2022 Albumin [Mass/Vol] 4.814554 g/dL 3.4-5.0 g/dL [facility] Other Calcium [Mass/Vol] 9.3922457 mg/dL 8.5-10.1 mg/ dL [facility] Other CO2 [Moles/Vol] 28.68538595 mmol/L 21.0-3 2.0 mmol/L [facility] Other Creatinine [Mass/Vol] 0.11019159 mg/dL 0.55-1.02 mg/dL [facility] Other Potassium [Moles/Vol] 4.86493535 mmol/L 3.5-5.1 mmol/L [facility] Other Protein [Mass/Vol] 7.050396 g/dL 6.4-8.2 g/dL [facility] Other Urea nitrogen [Mass/Vol] 13.2790944 mg/dL 7.0-18.0 mg/dL [facility] Other Comprehensive Metabolic Panel see note [facility] Other Comprehensive Metabolic Panel 143 mmol/L 136-145 mmol/L [facility] Other Comprehensive Metabolic Panel 140 mg/dL Critically high 74-106 mg/dL [facility] Other Comprehensive Metabolic Panel >60 mL/min/1.73m2 >=60 mL/min/1.73m2 [facility] Other Comprehensive Metabolic Panel 0.5 mg/dL 0.2-1.0 mg/dL [facility] Other Comprehensive Metabolic Panel 3.2 g/dL [facility] Other GLYCOHEMOGLOBIN A1Con 2022 ADA RECOMMENDATION SEE BELOW Normal [facility] Comment on above: Result Comment: ADA RECOMMENDED LIMIT 4.0 - 6.0 ADA THERAPEUTIC TARGET < 7.0 ACTION SUGGESTED > 7.0 Performed By: #### A 1C #### [facility] [address] [place] [address] Dr. Lauren Matthews Glucose [Mass/Vol] 131 mg/dL Normal [facility] Comment on above: Performed By: #### A 1C #### [facility] [address] [address] [address] Lauren Matthews HbA1c (Bld) [Mass fraction] 6.2 % Normal 4.5-6.2 [facility] Comment on above: Performed By: #### A 1C #### [facility] [address] [address] [address] Lauren Matthews LIPID PROFILEon 06-25-2022 CHOL-HDL RATIO NORM SEE BELOW Normal [facility] Comment on above: Result Comment: 3.3 - 4.4 LOW RISK 4.4 - 7.1 AVERAGE RISK 7.1 - 11.0 MODERATE RISK >11.0 HIGH RISK Performed By: #### C MP, LIPID, TSH #### [facility] [address] [place] [address] Dr. Lauren Matthews Cholesterol [Mass/Vol] 218 mg/dL Critically high <=200 mg/dL [facility] Comment on above: Performed By: #### C MP, LIPID, TSH #### [facility] [address] [address] [address] Lauren Matthews Cholesterol in HDL [Mass/Vol] 47 mg/dL 40-60 mg/dL [facility] Comment on above: Performed By: #### C MP, LIPID, TSH #### [facility] [address] [address] [address] Lauren Matthews Cholesterol in LDL [Mass/Vol] 155.8 mg/dL Normal [facility] Comment on above: Performed By: #### C MP, LIPID, TSH #### [facility] [address] [address] [address] Lauren Matthews Cholesterol.total/Ch olesterol in HDL [Mass ratio] 4.6 {ratio} [facility] Comment on above: Performed By: #### C MP, LIPID, TSH #### [facility] [address] [address] [address] Lauren Matthews HDL NORMAL > or = 60 mg/dl - LOW CARDIOVASCULAR RISK <40 mg/dl - HIGH CARDIOVASCULAR RISK Normal [facility] Comment on above: Performed By: #### C MP, LIPID, TSH #### [facility] [address] [address] [address] Lauren Matthews LDL CALC NORMAL SEE BELOW Normal [facility] Comment on above: Result Comment: <100 mg/dl OPTIMAL 100 - 129 mg/dl NEAR OR ABOVE OPTIMAL 130 - 159 mg/dl BORDERLINE HIGH 160 - 189 mg/dl HIGH >190 mg/dl VERY HIGH Performed By: #### C MP, LIPID, TSH #### [facility] [address] [address] [address] Lauren Matthews Triglyceride [Mass/Vol] 76 mg/dL <=150 mg/dL [facility] Comment on above: Performed By: #### C MP, LIPID, TSH #### [facility] [address] [address] [address] Lauren Matthews VLDL CALC 15.2 mg/dL Normal [facility] Comment on above: Performed By: #### C MP, LIPID, TSH #### [facility] [address] [address] [address] Lauren Matthews Lipid Panelon 06-25-2022 Lipid Panel > or = 60 mg/dl - LOW CARDIOVASCULAR RISK <40 mg/dl - HIGH CARDIOVASCULAR RISK [facility] Other Lipid Panel SEE BELOW [facility] Other Lipid Panel 155.8 mg/dL [facility] Other Lipid Panel 15.2 mg/dL [facility] Other PROF 14(COMP METB)on 023 Albumin [Mass/Vol] 4.0 g/dL Normal 3.4-5.0 [facility] Comment on above: Performed By: #### C MP, LIPID, TSH #### [facility] [address] [address] [address] Lauren Matthews Albumin/Globulin [Mass ratio] 1.3 {ratio} [facility] Comment on above: Performed By: #### C MP, LIPID, TSH #### [facility] [address] [address] [address] Lauren Matthews ALP [Catalytic activity/Vol] 62 U/L 46-116 U/L [facility] Comment on above: Performed By: #### C MP, LIPID, TSH #### [facility] [address] [place] [address] Dr. Lauren Matthews ALT [Catalytic activity/Vol] 19 U/L 14-59 U/L [facility] Comment on above: Performed By: #### C MP, LIPID, TSH #### [facility] [address] [place] [address] Dr. Lauren Matthews Anion gap [Moles/Vol] 13.6 mmol/L [facility] Comment on above: Performed By: #### C MP, LIPID, TSH #### [facility] [address] [place] [address] Dr. Lauren Matthews AST [Catalytic activity/Vol] 22 U/L 15-37 U/L [facility] Comment on above: Performed By: #### C MP, LIPID, TSH #### [facility] [address] [place] [address] Dr. Lauren Matthews Bilirubin [Mass/Vol] 0.5 mg/dL Normal 0.2-1.0 [facility] Comment on above: Performed By: #### C MP, LIPID, TSH #### [facility] [address] [place] [address] Dr. Lauren Matthews Calcium [Mass/Vol] 9.1 mg/dL Normal 8.5-10.1 [facility] Comment on above: Performed By: #### C MP, LIPID, TSH #### [facility] [address] [place] [address] Dr. Lauren Matthews Chloride [Moles/Vol] 105 mmol/L 98-107 mmol/L [facility] Comment on above: Performed By: #### C MP, LIPID, TSH #### [facility] [address] [place] [address] Dr. Lauren Matthews CO2 [Moles/Vol] 28.6 mmol/L Normal 21.0-32.0 [facility] Comment on above: Performed By: #### C MP, LIPID, TSH #### [facility] [address] [address] [address] Lauren Matthews Creatinine [Mass/Vol] 0.60 mg/dL Normal 0.55-1.02 [facility] Comment on above: Performed By: #### C MP, LIPID, TSH #### [facility] [address] [address] [address] Lauren Matthews EGFR-AF THAI >60 Normal >=60 [facility] Comment on above: Performed By: #### C MP, LIPID, TSH #### [facility] [address] [address] [address] Lauren Matthews EGFR-NON AF THAI >60 Normal >=60 [facility] Comment on above: Performed By: #### C MP, LIPID, TSH #### [facility] [address] [address] [address] Lauren Matthews Globulin (S) [Mass/Vol] 3.2 g/dL Normal [facility] Comment on above: Performed By: #### C MP, LIPID, TSH #### [facility] [address] [address] [address] Lauren Matthews Glucose [Mass/Vol] 140 mg/dL Critically high 74-106 [facility] Comment on above: Performed By: #### C MP, LIPID, TSH #### [facility] [address] [address] [address] Lauren Matthews Potassium [Moles/Vol] 4.2 mmol/L Normal 3.5-5.1 [facility] Comment on above: Performed By: #### C MP, LIPID, TSH #### [facility] [address] [address] [address] Lauren Matthews Protein [Mass/Vol] 7.2 g/dL Normal 6.4-8.2 [facility] Comment on above: Performed By: #### C MP, LIPID, TSH #### [facility] [address] [address] [address] Lauren Matthews Sodium [Moles/Vol] 143 mmol/L Normal 136-145 [facility] Comment on above: Performed By: #### C MP, LIPID, TSH #### [facility] [address] [address] [address] Lauren Matthews Urea nitrogen [Mass/Vol] 13.0 mg/dL Normal 7.0-18.0 [facility] Comment on above: Performed By: #### C MP, LIPID, TSH #### [facility] [address] [address] [address] Lauren Matthews Urea nitrogen/Creatinine [Mass ratio] 21.7 mg/mg [facility] Comment on above: Performed By: #### C MP, LIPID, TSH #### [facility] [address] [address] [address] Lauren Matthews TSHon 06-25-2022 TSH 0.916 uIU/mL Normal 0.358-3.740 [facility] Comment on above: Performed By: #### C MP, LIPID, TSH #### [facility] [address] [address] [address] Lauren Matthews [facility] SARS-CoV-2 (COVID-19) RNA PRAVIN+probe Ql (Unsp spec) Not detected Normal NOT DETECTED [facility] Comment on above: Result Comment: [...] for this test is supported by the [employer] of Health and Human Service's declaration that [...] used). Performed By: #### C VDTBH #### [facility] [address] [place] [address] Dr. Lauren Matthews ASYMPTOMATIC COVID-19 ANTIGE Non 01-15-2022 EUA Statement SEE BELOW Normal [facility] Comment on above: Result Comment: This test [...] sooner. Performed By: #### C VDAGA #### [facility] [address] [place] [address] Dr. Lauren Matthews SARS-CoV-2 (COVID-19) RNA PRAVIN+probe Ql (Unsp spec) Negative Normal NEGATIVE [facility] Comment on above: Result Comment: Nega tive results are presumptive. They do not preclude infection and should not be used as the sole basis for treatment decisions. Additional confirmatory testing by a molecular method should be considered. Performed By: #### C VDAGA #### [facility] [address] [place] [address] Dr. Lauren Matthews Vital Signs Date Time Vital Sign Value Performing Clinician Facility 07-05-2023 13:40-0400 Body height 167.64 cm [facility] 07-05-2023 13:40-0400 Body mass index (BMI) [Ratio] 33 kg/m2 [facility] 07-05-2023 13:40-0400 Body weight 93.04 kg [facility] 07-05-2023 13:40-0400 Diastolic blood pressure 85 mm[Hg] [facility] 07-05-2023 13:40-0400 Heart rate 71 /min [facility] 07-05-2023 13:40-0400 Respiratory rate 12 /min [facility] 07-05-2023 13:40-0400 Systolic blood pressure 160 mm[Hg] [facility] 11-22-2022 11:30-0400 Body height 167.64 cm James Ball Other [facility] Other 11-22-2022 11:30-0400 Body mass index (BMI) [Ratio] 30.92 kg/m2 James Ball Other [facility] Other 11-22-2022 11:30-0400 Body weight 86.91 kg James Ball Other [facility] Other 11-22-2022 11:30-0400 Diastolic blood pressure 91 mm[Hg] James Ball Other [facility] Other 11-22-2022 11:30-0400 Respiratory rate 12 /min James Ball Other [facility] Other 11-22-2022 11:30-0400 Systolic blood pressure 167 mm[Hg] James Ball Other [facility] Other 08-20-2022 12:30-0400 Body height 167.64 cm James Ball Other [facility] Other 08-20-2022 12:30-0400 Body mass index (BMI) [Ratio] 31.21 kg/m2 James Ball Other [facility] Other 08-20-2022 12:30-0400 Body weight 87.73 kg James Ball Other [facility] Other 08-20-2022 12:30-0400 Diastolic blood pressure 88 mm[Hg] James Ball Other [facility] Other 08-20-2022 12:30-0400 Respiratory rate 12 /min James Ball Other [facility] Other 08-20-2022 12:30-0400 Systolic blood pressure 167 mm[Hg] James Ball Other [facility] Other 07-23-2022 12:30-0400 Body height 167.64 cm James Ball Other [facility] Other 07-23-2022 12:30-0400 Body mass index (BMI) [Ratio] 30.92 kg/m2 James Ball Other [facility] Other 07-23-2022 12:30-0400 Body weight 86.91 kg James Ball Other [facility] Other 07-23-2022 12:30-0400 Diastolic blood pressure 82 mm[Hg] James Ball Other [facility] Other 07-23-2022 12:30-0400 Respiratory rate 12 /min James Ball Other [facility] Other 07-23-2022 12:30-0400 Systolic blood pressure 124 mm[Hg] James Ball Other [facility] Other 06-25-2022 13:30-0500 Body height 167.64 cm James Ball Other [facility] Other 06-25-2022 13:30-0500 Body mass index (BMI) [Ratio] 31.89 kg/m2 James Ball Other [facility] Other 06-25-2022 13:30-0500 Body weight 89.63 kg James Ball Other [facility] Other 06-25-2022 13:30-0500 Diastolic blood pressure 80 mm[Hg] James Smiley Other [facility] Other 06-25-2022 13:30-0500 Respiratory rate 12 /min James Smiley Other [facility] Other 06-25-2022 13:30-0500 Systolic blood pressure 122 mm[Hg] James Smiley Other [facility] Other Encounters Encounter Date Encounter Type Care Provider Facility Start: 08-14-2023 End: 08-14-2023 ambulatory LORENZO Barth LARRY Not Available Start: 07-05-2023 End: 07-05-2023 ambulatory [facility] Work Phone: Start: 07-05-2023 End: 07-05-2023 Encounter for general adult medical examination without abnormal findings [facility] Start: 07-05-2023 End: 07-05-2023 Patient encounter procedure [facility] Work Phone: Start: 07-01-2023 Non-patient / Non-visit [facility] [place] Work Phone: Start: 06-24-2023 Non-patient / Non-visit [facility] [place] Work Phone: Start: 05-24-2023 End: 05-24-2023 ambulatory James Smiley Other [facility] Other Start: 05-24-2023 Telephone encounter James Dwight RAMIRES [facility] Start: 03-07-2023 End: 03-07-2023 ambulatory James Smiley Other [facility] Other Start: 03-07-2023 Telephone encounter Jmaes Smiley IKE [facility] Start: 02-28-2023 End: 02-28-2023 ambulatory James Smiley Other [facility] Other Start: 02-28-2023 Telephone encounter James Smiley FP [facility] Start: 02-26-2023 End: 02-26-2023 ambulatory James Dwight Other [facility] Other Start: 02-26-2023 Telephone encounter James Smiley FP [facility] Start: 11-22-2022 End: 11-22-2022 ambulatory James Dwight Other [facility] Other Start: 11-22-2022 Office outpatient vi sit 15 minutes James Ball [facility] Start: 10-09-2022 End: 10-09-2022 ambulatory James Dwight Other [facility] Other Start: 10-09-2022 Telephone encounter James Smiley FP [facility] Start: 08-20-2022 End: 08-20-2022 ambulatory James Smiley Other [facility] Other Start: 08-20-2022 Office outpatient vi sit 15 minutes James Ball [facility] Start: 07-23-2022 End: 07-23-2022 ambulatory James Smiley Other [facility] Other Start: 07-23-2022 Office outpatient vi sit 15 minutes James Ball [facility] Start: 06-26-2022 Encounter for genera l adult medical examination without abnormal findings JAMES SMILEY [facility] Start: 06-25-2022 End: 06-26-2022 Encounter for general adult medical examination without abnormal findings JAMES SMILEY Facility:[facility] Start: 06-25-2022 Periodic preventive med est patient 40-64yrs James [facility] Start: 06-25-2022 End: 06-26-2022 ambulatory JAMES SMILEY Facility:[facility] Start: 06-23-2022 End: 06-23-2022 ambulatory James Smiley Other [facility] Other Start: 06-23-2022 Encounter for genera l adult medical examination without abnormal findings James Smiley [facility] Start: 06-23-2022 Telephone encounter James Smiley FP [facility] Start: 06-22-2022 End: 06-22-2022 ambulatory James Smiley Other [facility] Other Start: 06-22-2022 Telephone encounter James RAMIRES [facility] Start: 03-07-2022 End: 03-08-2022 ambulatory VINNIE GUSMAN Facility:[facility] Start: 01-15-2022 End: 01-15-2022 ambulatory VINNIE GSUMAN Facility:[facility] Start: 05-17-2021 Adult health examination James Smiley Other [facility] Other Procedures Date Procedure Procedure Detail Performing Clinician Depression screening Scarlett Smiley Other Screening for malign ant neoplasm of breast James Smiley Other Plan of Treatment Date Care Activity Detail Author Comprehensive metabo lic 2000 panel - Serum or Plasma [facility] enter MG Breast - bilateral Screening [facility] Microalbumin [Mass/volume] in Urine [facility] Immunizations Immunization Date Immunization Notes Care Provider Maira carrington 02-23-2013 tetanus and diphther ia toxoids, adsorbed, preservative free, for adult use (5 Lf of tetanus toxoid and 2 Lf of diphtheria toxoid) James Smiley Other [facility] Payers Date Payer Category Payer Unknown [id number] 2019 Unknown [id number] 1960 Unknown [id number] [id number] 1960 Unknown [id number] 1960 Unknown [id number] [id number] [id number] 1960 Unknown [id number] [id number] [id number] Social History Date Type Detail Facility Sex Assigned At [facility] Other Start: 07[facility]04-2023 [facility] Start: 1960 Sex Assigned At Female F [facility] Clinical Notes 06-23-2022 to 05-24-2023 Note Date & Type Note Facility 05-24-2023 Evaluation note Encounter Date Diagnosis Assessment Notes May, Controlled type 2 diabetes mellitus with hyperglycemia, without long-term current use of insulin (ICD-10 - E11.65) [facility] Other 11-16-2023 Evaluation note* Encounter Date Diagnosis Assessment Notes Treatment Notes Treatment Clinical Notes Feb, Type 2 diabetes mellitus with hyperglycemia, without long-term current use of insulin (ICD-10 - E11.65) [facility] Other 11-09-2023 Evaluation note* Encounter Date Diagnosis Assessment Notes Treatment Notes Treatment Clinical Notes Feb, Type 2 diabetes mellitus with hyperglycemia, without long-term current use of insulin (ICD-10 - E11.65) [facility] Other 11-07-2023 Evaluation note* Encounter Date Diagnosis [...] weight loss. D/c Trulicity and monitor FBS [facility] Other 08-03-2023 Evaluation note* Encounter Date Diagnosis [...] index [BMI] 30.0-30.9, adult (ICD-10 - Z68.30) [facility] Other 05-01-2023 Evaluation note* Encounter Date Diagnosis [...] index [BMI] 31.0-31.9, adult (ICD-10 - Z68.31) [facility] Other 04-03-2023 Evaluation note* Encounter Date Diagnosis [...] instructed to call office and hold [employer] [facility] Other 03-06-2023 Evaluation note* Encounter Date Diagnosis [...] mammogram for breast cancer (ICD-10 - Z12.31) [facility] Other 03-04-2023 Evaluation note* Encounter Date Diagnosis Assessment Notes Treatment Notes Treatment Clinical Notes Jun, Wellness examination (ICD-10 - Z00.00) [facility] Other Evaluation note* Diagnosis Onset Date Resolution Status Hyperlipemia, mixed acute Hypothyroid acute Primary hypertension acute Screening mammogram for breast cancer noneactive Wellness examination noneact [facility] Work Phone: History general Narrative - Reported* Type Description [...] Left 02/25/2013 Hospitalization History see surgical history [facility] Other Summary Purpose Family History No Family History Records Found Relationship Condition Age at Onset Recorded Date/T clary brother Heart disease Unknown Diabetes mellitus Unknown Not Specified Heart disease Unknown Advance Directives No Advanced Directives Records Found Advance Directive Response Recorded Date/ Time Advance Directives No May 14, 2023 1:15pm Chief Complaint and Reason for Visit Chief Complaint Amb Documentation Amb Documentation Wellness Reason for Visit Hyperlipemia, mixed Hypothyroid Primary hypertension Screening mammogram for breast cancer Wellness examination Additional Source Comments INFORMATION SOURCE (unrecogn ized section and content) DATE CREATED AUTHOR 06/27/2022 [facility] DATE CREATED AUTHOR AUTHOR'S ORGANCECI ATION 08/16/2023 [facility] EPIC REASON FOR VISIT (unrecogniz ed section and content) prescription refillNo Inform ationwellness1 month Follow up1 month Follow upTrulicity3 month Follow uplab [id number] resultsrefillMedication Change Care Teams (unrecognized sec tion and content) Team Status: Active Member Role Status Dates James Ball , DO Primary Care Provider Active Team Status: Active Member Role Status Dates James Dwight , Primary Care Provider Active Start: June 24, 2023 JOSEPH Garcia Attending Provider Active Start : June 24, 2023 Team Status: Active Member Role Status Dates James Dwight , Primary Care Provider Active Start: July 01, 2023 JOSEPH Garcia Attending Provider Active Start : July 01, 2023 Team Status: Inactive Member Role Status Dates James Dwight , Primary Care Provide r, Attending Provider Active Start: July 05, 2023 End: July 05, 2023 Goals (unrecognized section and content) Goals may be documented in a n alternate section FOR RECORDS PERTAINING TO PATIENTS WHO ARE [...] BE BASED ON THE PRIMARY CLINICAL RECORDS. [employer] provides no warranty or guarantee of the accuracy or completeness of information in this document.
== END 2024-01-29 10:39 | disposition home or self-care (01) ==
LOC: RAD 10:38
PROVIDERS: PCP Internal Medicine; Visit Provider Podiatrist Foot & Ankle Surgery
DX: M25.571 Pain in right ankle and joints of right foot (principal)
CPT/HCPCS: 73610

== ENCOUNTER 2024-02-13 12:52 | Outpatient (RCR) | payer BC, SELFPAY | END 2024-03-03 17:27 | disposition home or self-care (01) | LOC: PT 12:52 | PROVIDERS: PCP Internal Medicine; Visit Provider Podiatrist Foot & Ankle Surgery | DX: M25.571 Pain in right ankle and joints of right foot (principal) | CPT/HCPCS: 97033; 97035; 97110; 97140; 97161 ==

== ENCOUNTER 2024-07-18 07:12 | Outpatient (OUT) | payer BC, SELFPAY ==
--- OUTSIDE RECORDS SUMMARY | 2024-07-18 07:16 | XMS_ITS | CCD ---
Author Organization [facility] Care Team Providers Care Travel Accommodations Rater Name Role Phone BALL, JAMES Admitting Unavailable BALL, JAMES Attending Unavailable BALL, JAMES Primary Care Unavailable BALL, JAMES Consulting Unavailable UZMA, VINNIE Admitting Unavailable UZMA, VINNIE Attending Unavailable BALL, JAMES Primary Care Unavailable UZMA, VINNIE Consulting Unavailable UZMA, VINNIE Admitting Unavailable UZMA, VINNIE Attending Unavailable BALL, JAMES Primary Care Unavailable UZMA, VINNIE Consulting Unavailable Ball, James Unavailable LORENZO JUAREZ Attending Unavailable Allergies Allergy Classification Reported Allergen(s) Allergy Type Date of Onset Reaction(s) Facility (1 source) Leucine Drug Allergy [facility] Repository Medications Current Medications Medication Drug Class(es) [...] transcutaneous qd for 30 days Active atorvastatin (6 sources) HMG-CoA Reductase Inhibitor Start: 05-01-2024 Atorvastatin 20 mg tablet Active 0 .ROUTE .COMPLEX May 01, 2024 8:02am TAKE 1 TABLET EVERY EVENING Start: 07-09-2023 End: 05-01-2024 take 1 tablet by mouth once daily in the evening Atorvastatin 20 mg tablet Discontinued 20 MG PO Every evening 30 July 09, 2023 12:00am May 01, 2024 8:03am take 1 tablet by obey th every twenty-four hours Atorvastatin Calcium 40 MG 1 tablet Orally Once a day Active 0.5 ml dulaglutide 3 mg/ml auto-injector (6 sources) GLP-1 Receptor Agonist inject 1.5 mg by subcutaneous injection every week Trulicity 1.5 MG/0.5ML 1.5mg Subcutaneous weekly Active levothyroxine sodium 0.088 mg oral tablet (14 sources) l-Thyroxine Start: 09-27-19 Levothyroxine 88 mcg tablet Active 0 .ROUTE .COMPLEX 90 September 27, 2023 7:18am TAKE 1 (ONE) TABLET DAILY ON AN EMPTY STOMACH 90 Start: 07-04-2023 End: 09-27-2023 take 1 tablet by mouth once daily Levothyroxine 88 mcg tablet Discontinued 88 MCG PO Daily July 04, 2023 12:00am September 27, 2023 7:18am ON AN EMPTY STOMACH Levothyroxine So dium [...] a day for 30 days Jun, Active telmisartan 20 mg oral tablet (1 source) Angiotensin 2 Receptor Terrell Start: 07-15-2024 take 1 tablet by mouth once daily Telmisartan 20 mg tablet Active 20 MG PO Daily 90 90 July 15, 2024 12:00am Tirzepatide (1 source) Start: 07-15-2024 Tirzepatide (Mounjaro) 12.5 mg/0.5 mL pen injector Active 12.5 MG SUBCUT .COMPLEX 6 90 July 15, 2024 11:39am 12.5 mg subcutaneously; Completed/Discontinued Medications Medication Drug Class(es) Dates Sig (Normalized) Sig (Original) olmesartan medoxomil 40 mg oral tablet (9 sources) Angiotensin 2 Receptor Terrell Start: 07-04-2023 End: 07-05-2023 take 1 tablet by mouth once daily Olmesartan 40 mg tablet Discontinued 40 MG PO Daily July 04, 2023 12:00am July 05, 2023 1:40pm Start: 08-20-2022 take 1 tablet by obey th every twenty-four hours Olmesartan Medoxomil 20 MG 1 tablet Orally Once a day for 30 days August, Active take 1 tablet by mouth once shelley y Olmesartan Medoxomil 40 MG TAKE 1 TABLET BY MOUTH EVERY DAY for 30 Active Tirzepatide (10 sources) Start: 07-05-2023 End: 09-12-2023 Tirzepatide (Mounjaro) 2.5 m g/0.5 mL pen injector Discontinued 2.5 MG SUBCUT every week July 05, 2023 12:00am September 12, 2023 4:27pm Start: 07-05-2023 Tirzepatide (M ounjaro) 2.5 mg/0.5 mL pen injector Active 2.5 MG SUBCUT every week July 05, 2023 12:00am Start: 07-01-2023 End: 07-04-2023 Tirzepatide (Mounjaro) 2.5 m g/0.5 mL pen injector Discontinued 2.5 MG SUBCUT every week 2 July 01, 2023 12:42pm July 04, 2023 4:43pm [...] 24, 2023 1:00am June 24, 2023 2:00pm Tirzepatide (2 sources) Start: 09-09-2023 End: 09-12-2023 Tirzepatide (Mounjaro) 5 mg/ 0.5 mL pen injector Discontinued 0 .ROUTE .COMPLEX September 09, 2023 1:03pm September 12, 2023 4:28pm INJECT THE CONTENTS OF ONE PEN SUBCUTANEOUSLY WEEKLY DIRECTED Start: 07-09-2023 End: 09-09-2023 Tirzepatide (Mounjaro) 5 mg/ 0.5 mL pen injector Discontinued 5 MG SUBCUT every week July 09, 2023 12:00am September 09, 2023 1:04pm Tirzepatide (2 sources) Start: 10-28-2023 End: 01-17-2024 Tirzepatide 7.5 mg/0.5 mL pe n injector Discontinued 7.5 MG SUBCUT every week 6 October 28, 2023 5:39pm January 17, 2024 4:20pm Start: 09-12-2023 End: 10-28-2023 Tirzepatide 7.5 mg/0.5 mL pe n injector Discontinued 7.5 MG SUBCUT every week 6 September 12, 2023 4:26pm October 28, 2023 5:39pm Tirzepatide (3 sources) Start: 05-16-2024 End: 07-15-2024 Tirzepatide (Mounjaro) 10 mg /0.5 mL pen injector Discontinued 0 .ROUTE .COMPLEX 6 May 16, 2024 8:42am July 15, 2024 11:41am INJECT THE CONTENTS OF ONE PEN SUBCUTANEOUSLY WEEKLY DIRECTED Start: 01-29-2024 End: 05-16-2024 Tirzepatide 10 mg/0.5 mL pen injector Discontinued 10 MG SUBCUT every week 6 January 29, 2024 1:49pm May 16, 2024 8:42am Start: 01-17-2024 End: 01-29-2024 Tirzepatide 10 mg/0.5 mL pen injector Discontinued 10 MG SUBCUT every week 6 January 17, 2024 4:19pm January 29, 2024 1:50pm Problems Active Problems Problem Classification Problem Date Documented Da te Episodic/Chronic Coagulation and hemorrhagic disorders (20 sources) Immune thrombocytopenic purpura; Translations: [Immune thrombocytopenic purpura] Resolved: Chronic Deficiency and other anemia (5 sources) [...] Chronic Other nutritional; endocrine; and metabolic disorders (3 sources) Obesity, unspecified; Translations: [Obesity, unspecified] Chronic Other nutritional; endocrine; and metabolic disorders (13 sources) Obesity; Translations: [Other obesity due to excess calories] 07-05-2023 Chronic Other nutritional; endocrine; and metabolic disorders (2 sources) Other obesity due to excess calories Chronic Other nutritional; endocrine; and metabolic disorders (1 source) Body mass index (BMI) 31.0-31.9, adult Chronic Other nutritional; endocrine; and metabolic disorders (1 source) Body mass index (BMI) 30.0-30.9, adult Chronic Other screening for suspected conditions (not mental disorders or infectious disease) (4 sources) Encounter for screening mammogram for malignant [...] 06-25-2022 BASO # 0.0 103/ul Normal 0.0-0.1 [facility] Comment on above: Performed By: #### C BC #### [facility] [address] [place], [place] [address] Dr. Lauren Matthews Basophils/100 WBC (Bld) 0.5 % Normal 0.2-2.0 [facility] Comment on above: Performed By: #### C BC #### [facility] [address] [place] [address] Dr. Lauren Matthews EO # 0.1 103/ul Normal 0.0-0.7 [facility] Comment on above: Performed By: #### C BC #### [facility] [address] [place] [address] Dr. Lauren Matthews Eosinophils/100 WBC (Bld) 2.4 % Normal 0.9-7.0 [facility] Comment on above: Performed By: #### C BC #### [facility] [address] [place] [address] Dr. Lauren Matthews Erythrocyte distribution width (RBC) [Ratio] 13.5 % Normal 11.0-15.0 [facility] Comment on above: Performed By: #### C BC #### [facility] [address] [place] [address] Dr. Lauren Matthews Hematocrit (Bld) [Volume fraction] 40.2 % Normal 36.0-48.0 [facility] Comment on above: Performed By: #### C BC #### [facility] [address] [place] [address] Dr. Lauren Matthews Hemoglobin (Bld) [Mass/Vol] 13.5 g/dL Normal 12.0-16.0 [facility] Comment on above: Performed By: #### C BC #### [facility] [address] [place] [address] Dr. Lauren Matthews IG # 0.01 10e3/ul Normal 0.00-0.03 [facility] Comment on above: Performed By: #### C BC #### [facility] [address] [place] [address] Dr. Lauren Matthews IG % 0.2 % Normal 0.0-0.5 [facility] Comment on above: Performed By: #### C BC #### [facility] [address] [place] [address] Dr. Lauren Matthews LYMPH # 1.2 103/ul Normal 1.2-3.8 [facility] Comment on above: Performed By: #### C BC #### [facility] [address] [place] [address] Dr. Lauren Matthews Lymphocytes/100 WBC (Bld) 28.5 % Normal 20.5-60.0 [facility] Comment on above: Performed By: #### C BC #### [facility] [address] [place] [address] Dr. Lauren Matthews MANUAL DIFF REQ NO Normal [place] Comment on above: Performed By: #### C BC #### [facility] [address] [place] [address] Dr. Lauren Matthews MCH (RBC) [Entitic mass] 30.5 pg Normal 26.7-34.0 [facility] Comment on above: Performed By: #### C BC #### [facility] [address] [place] [address] Dr. Lauren Matthews MCHC (RBC) [Mass/Vol] 33.6 g/dL Normal 29.9-35.2 [facility] Comment on above: Performed By: #### C BC #### [facility] [address] [place] [address] Dr. Lauren Matthews MCV (RBC) [Entitic vol] 90.7 fL Normal 81.0-99.0 [facility] Comment on above: Performed By: #### C BC #### [facility] [address] [place] [address] Dr. Lauren Matthews MONO # 0.3 103/ul Normal 0.3-0.8 [facility] Comment on above: Performed By: #### C BC #### [facility] [address] [place] [address] Dr. Lauren Matthews Monocytes/100 WBC (Bld) 8.0 % Normal 1.7-12.0 [facility] Comment on above: Performed By: #### C BC #### [facility] [address] [place] [address] Dr. Lauren Matthews NEUT # 2.5 103/ul Normal 1.4-6.5 [facility] Comment on above: Performed By: #### C BC #### [facility] [address] [place] [address] Dr. Lauren Matthews Neutrophils/100 WBC (Bld) 60.4 % Normal 43.0-75.0 [facility] Comment on above: Performed By: #### C BC #### [facility] [address] [place] [address] Dr. Lauren Matthews Platelet mean volume (Bld) [Entitic vol] 12.1 fL Normal 9.5-13.5 [facility] Comment on above: Performed By: #### C BC #### [facility] [address] [place] [address] [address] Lauren Matthews PLT 169 103/ul Normal 150-450 [facility] Comment on above: Performed By: #### C BC #### [facility] [address] [place] [address] Dr. Lauren Matthews RBC 4.43 106/ul Normal 4.20-5.40 [facility] Comment on above: Performed By: #### C BC #### [facility] [address] [place] [address] Dr. Lauren Matthews WBC 4.1 103/ul Normal 4.0-11.0 [facility] Comment on above: Performed By: #### C BC #### [facility] [address] [place] [address] Dr. Lauren Matthews Comprehensive Metabolic Pane [facility] 06-25-2022 Albumin [Mass/Vol] 4.986227 g/dL 3.4-5.0 g/dL [facility] [employer] Other Calcium [Mass/Vol] 9.1553884 mg/dL 8.5-10.1 mg/ dL [employer] Other CO2 [Moles/Vol] 28.49468268 mmol/L 21.0-3 2.0 mmol/L [employer] Other Creatinine [Mass/Vol] 0.77817498 mg/dL 0.55-1.02 mg/dL [employer] Other Potassium [Moles/Vol] 4.04242307 mmol/L 3.5-5.1 mmol/L [employer] Other Protein [Mass/Vol] 7.023878 g/dL 6.4-8.2 g/dL N [facility] [employer] Other Urea nitrogen [Mass/Vol] 13.4847025 mg/dL 7.0-18.0 mg/dL [employer] Other Comprehensive Metabolic Panel see note [employer] Other Comprehensive Metabolic Panel 143 mmol/L 136-145 mmol/L [employer] Other Comprehensive Metabolic Panel 140 mg/dL Critically high 74-106 mg/dL [employer] Other Comprehensive Metabolic Panel >60 mL/min/1.73m2 >=60 mL/min/1.73m2 [employer] Other Comprehensive Metabolic Panel 0.5 mg/dL 0.2-1.0 mg/dL [employer] Other Comprehensive Metabolic Panel 3.2 g/dL [employer] Other GLYCOHEMOGLOBIN A1Con 2022 ADA RECOMMENDATION SEE BELOW Normal [facility] Comment on above: Result Comment: ADA RECOMMENDED LIMIT 4.0 - 6.0 ADA THERAPEUTIC TARGET < 7.0 ACTION SUGGESTED > 7.0 Performed By: #### A 1C #### [facility] [address] [place] [address] Dr. Lauren Matthews Glucose [Mass/Vol] 131 mg/dL Normal [facility] Comment on above: Performed By: #### A 1C #### [facility] [address] [place] [address] [address] Lauren Matthews HbA1c (Bld) [Mass fraction] 6.2 % Normal 4.5-6.2 [facility] Comment on above: Performed By: #### A 1C #### [facility] [address] [place] [address] Dr. Lauren Matthews LIPID PROFILEon 06-25-2022 CHOL-HDL RATIO NORM SEE BELOW Normal [facility] Comment on above: Result Comment: 3.3 - 4.4 LOW RISK 4.4 - 7.1 AVERAGE RISK 7.1 - 11.0 MODERATE RISK >11.0 HIGH RISK Performed By: #### C MP, LIPID, TSH #### [facility] [address] [place] [address] [address] Lauren Matthews Cholesterol [Mass/Vol] 218 mg/dL Critically high <=200 mg/dL [facility] Comment on above: Performed By: #### C MP, LIPID, TSH #### [facility] [address] [place] [address] [address] Lauren Matthews Cholesterol in HDL [Mass/Vol] 47 mg/dL 40-60 mg/dL [facility] Comment on above: Performed By: #### C MP, LIPID, TSH #### [facility] [address] [place] [address] [address] Lauren Matthews Cholesterol in LDL [Mass/Vol] 155.8 mg/dL Normal [facility] Comment on above: Performed By: #### C MP, LIPID, TSH #### [facility] [address] [place] [address] Dr. Lauren Matthews Cholesterol.total/Ch olesterol in HDL [Mass ratio] 4.6 {ratio} [facility] Comment on above: Performed By: #### C MP, LIPID, TSH #### [facility] [address] [place] [address] Dr. Lauren Matthews HDL NORMAL > or = 60 mg/dl - LOW CARDIOVASCULAR RISK <40 mg/dl - HIGH CARDIOVASCULAR RISK Normal [facility] Comment on above: Performed By: #### C MP, LIPID, TSH #### [facility] [address] [place] [address] [address] Lauren Matthews LDL CALC NORMAL SEE BELOW Normal [facility] Comment on above: Result Comment: <100 mg/dl OPTIMAL 100 - 129 mg/dl NEAR OR ABOVE OPTIMAL 130 - 159 mg/dl BORDERLINE HIGH 160 - 189 mg/dl HIGH >190 mg/dl VERY HIGH Performed By: #### C MP, LIPID, TSH #### [facility] [address] [place] [address] [address] Lauren Matthews Triglyceride [Mass/Vol] 76 mg/dL <=150 mg/dL [facility] Comment on above: Performed By: #### C MP, LIPID, TSH #### [facility] [address] [place] [address] [address] Lauren Matthews VLDL CALC 15.2 mg/dL Normal [facility] Comment on above: Performed By: #### C MP, LIPID, TSH #### [facility] [address] [place] [address] [address] Lauren Matthews Lipid Panelon 06-25-2022 Lipid Panel > or = 60 mg/dl - LOW CARDIOVASCULAR RISK <40 mg/dl - HIGH CARDIOVASCULAR RISK [facility] [email or web address] Other Lipid Panel SEE BELOW [employer] Other Lipid Panel 155.8 mg/dL [employer] Other Lipid Panel 15.2 mg/dL [facility] [email or web address] Other PROF 14(COMP METB)on 023 Albumin [Mass/Vol] 4.0 g/dL Normal 3.4-5.[address] [facility] Comment on above: Performed By: #### C MP, LIPID, TSH #### [facility] [address] [place] [address] Dr. Lauren Matthews Albumin/Globulin [Mass ratio] 1.3 {ratio} [facility] Comment on above: Performed By: #### C MP, LIPID, TSH #### [facility] [address] [place] [address] Dr. Lauren Matthews ALP [Catalytic activity/Vol] 62 U/L 46-116 U/L [facility] Comment on above: Performed By: #### C MP, LIPID, TSH #### [facility] [address] [place] [address] [address] Lauren Matthews ALT [Catalytic activity/Vol] 19 U/L 14-59 U/L [facility] Comment on above: Performed By: #### C MP, LIPID, TSH #### [facility] [address] [place] [address] [address] Lauren Matthews Anion gap [Moles/Vol] 13.6 mmol/L [facility] Comment on above: Performed By: #### C MP, LIPID, TSH #### [facility] [address] [place] [address] [address] Lauren Matthews AST [Catalytic activity/Vol] 22 U/L 15-37 U/L [facility] Comment on above: Performed By: #### C MP, LIPID, TSH #### [facility] [address] [place] [address] [address] Lauren Matthews Bilirubin [Mass/Vol] 0.5 mg/dL Normal 0.2-1.0 [facility] Comment on above: Performed By: #### C MP, LIPID, TSH #### [facility] [address] [place] [address] Dr. Lauren Matthews Calcium [Mass/Vol] 9.1 mg/dL Normal 8.5-10.[address] [facility] Comment on above: Performed By: #### C MP, LIPID, TSH #### [facility] [address] [place] [address] Dr. Lauren Matthews Chloride [Moles/Vol] 105 mmol/L 98-107 mmol/L [facility] Comment on above: Performed By: #### C MP, LIPID, TSH #### [facility] [address] [place] [address] [address] Lauren Matthews CO2 [Moles/Vol] 28.6 mmol/L Normal 21.0-32.0 [facility] Comment on above: Performed By: #### C MP, LIPID, TSH #### [facility] [address] [place] [address] Dr. Lauren Matthews Creatinine [Mass/Vol] 0.60 mg/dL Normal 0.55-1.02 [facility] Comment on above: Performed By: #### C MP, LIPID, TSH #### [facility] [address] [place] [address] Dr. Lauren Matthews EGFR-AF ETHIOPIAN >60 Normal >=60 [facility] Comment on above: Performed By: #### C MP, LIPID, TSH #### [facility] [address] [place] [address] Dr. Lauren Matthews EGFR-NON AF ETHIOPIAN >60 Normal >=60 [facility] Comment on above: Performed By: #### C MP, LIPID, TSH #### [facility] [address] [place] [address] [address] Lauren Matthews Globulin (S) [Mass/Vol] 3.2 g/dL Normal [facility] Comment on above: Performed By: #### C MP, LIPID, TSH #### [facility] [address] [place] [address] [address] Lauren Matthews Glucose [Mass/Vol] 140 mg/dL Critically high 74-106 [facility] Comment on above: Performed By: #### C MP, LIPID, TSH #### [facility] [address] [place] [address] Dr. Lauren Matthews Potassium [Moles/Vol] 4.2 mmol/L Normal 3.5-5.1 [facility] Comment on above: Performed By: #### C MP, LIPID, TSH #### [facility] [address] [place] [address] Dr. Lauren Matthews Protein [Mass/Vol] 7.2 g/dL Normal 6.4-8.[address] [facility] Comment on above: Performed By: #### C MP, LIPID, TSH #### [facility] [address] [place] [address] Dr. Lauren Matthews Sodium [Moles/Vol] 143 mmol/L Normal 136-[address] [facility] Comment on above: Performed By: #### C MP, LIPID, TSH #### [facility] [address] [place] [address] Dr. Lauren Matthews Urea nitrogen [Mass/Vol] 13.0 mg/dL Normal 7.0-18.0 [facility] Comment on above: Performed By: #### C MP, LIPID, TSH #### [facility] [address] [place] [address] Dr. Lauren Matthews Urea nitrogen/Creatinine [Mass ratio] 21.7 mg/mg [facility] Comment on above: Performed By: #### C MP, LIPID, TSH #### [facility] [address] [place] [address] Dr. Lauren Matthews TSHon 06-25-2022 TSH 0.916 uIU/mL Normal 0.358-3.740 [facility] Comment on above: Performed By: #### C MP, LIPID, TSH #### [facility] [address] [place], [place] [address] Dr. Lauren Matthews Covid-19 PCR (CVDTB)on 02-20 SARS-CoV-2 (COVID-19) RNA PRAVIN+probe Ql (Unsp spec) Not detected Normal NOT DETECTED [facility] Comment on above: Result Comment: When diagnostic [...] for this test is supported by the [place] of [employer] and Human Service's declaration that [...] used). Performed By: #### C VDTBH #### [facility] [address] [place], [place] [address] Dr. Lauren Matthews ASYMPTOMATIC COVID-19 ANTIGE Non 01-15-2022 EUA Statement SEE BELOW Normal [facility] Comment on above: Result Comment: This test [...] sooner. Performed By: #### C VDAGA #### [facility] [address] [place] [address] Dr. Lauren Matthews SARS-CoV-2 (COVID-19) RNA PRAVIN+probe Ql (Unsp spec) Negative Normal NEGATIVE [facility] Comment on above: Result Comment: Nega tive results are presumptive. They do not preclude infection and should not be used as the sole basis for treatment decisions. Additional confirmatory testing by a molecular method should be considered. Performed By: #### C VDAGA #### [facility] [address] [place] [address] [address] Lauren Matthews Vital Signs Date Time Vital Sign Value Performing Clinician Facility 07-15-2024 11:17-0400 Body height 167.[address] [facility] 07-15-2024 11:17-0400 Body mass index (BMI) [Ratio] 32.8 kg/m2 [facility] 07-15-2024 11:17-0400 Body weight 92.[address] [facility] 07-15-2024 11:17-0400 Diastolic blood pressure 103 mm[Hg] [facility] 07-15-2024 11:17-0400 Heart rate 76 /min [facility] 07-15-2024 11:17-0400 Respiratory rate 12 /min [facility] 07-15-2024 11:17-0400 Systolic blood pressure 185 mm[Hg] [facility] 07-05-2023 13:40-0400 Body height 167.[address] [facility] 07-05-2023 13:40-0400 Body mass index (BMI) [Ratio] 33 kg/m2 [facility] 07-05-2023 13:40-0400 Body weight 93.[address] [facility] 07-05-2023 13:40-0400 Diastolic blood pressure 85 mm[Hg] [facility] 07-05-2023 13:40-0400 Heart rate 71 /min [facility] 07-05-2023 13:40-0400 Respiratory rate 12 /min [facility] 07-05-2023 13:40-0400 Systolic blood pressure 160 mm[Hg] [facility] 11-22-2022 11:30-0400 Body height 167.64 cm James Ball Other [facility] [email or web address] Other 11-22-2022 11:30-0400 Body mass index (BMI) [Ratio] 30.92 kg/m2 James Ball Other [employer] Other 11-22-2022 11:30-0400 Body weight 86.91 kg James Ball Other [employer] Other 11-22-2022 11:30-0400 Diastolic blood pressure 91 mm[Hg] James Ball Other [employer] Other 11-22-2022 11:30-0400 Respiratory rate 12 /min James Ball Other [employer] Other 11-22-2022 11:30-0400 Systolic blood pressure 167 mm[Hg] James Ball Other [employer] Other 08-20-2022 12:30-0400 Body height 167.64 cm James Ball Other [employer] Other 08-20-2022 12:30-0400 Body mass index (BMI) [Ratio] 31.21 kg/m2 James Ball Other [employer] Other 08-20-2022 12:30-0400 Body weight 87.73 kg James Ball Other [employer] Other 08-20-2022 12:30-0400 Diastolic blood pressure 88 mm[Hg] James Ball Other [employer] Other 08-20-2022 12:30-0400 Respiratory rate 12 /min James Ball Other [employer] Other 08-20-2022 12:30-0400 Systolic blood pressure 167 mm[Hg] James Ball Other [employer] Other 07-23-2022 12:30-0400 Body height 167.64 cm James Ball Other [employer] Other 07-23-2022 12:30-0400 Body mass index (BMI) [Ratio] 30.92 kg/m2 James Ball Other [employer] Other 07-23-2022 12:30-0400 Body weight 86.91 kg James Ball Other [employer] Other 07-23-2022 12:30-0400 Diastolic blood pressure 82 mm[Hg] James Ball Other [employer] Other 07-23-2022 12:30-0400 Respiratory rate 12 /min James Ball Other [employer] Other 07-23-2022 12:30-0400 Systolic blood pressure 124 mm[Hg] James Ball Other [employer] Other 06-25-2022 13:30-0500 Body height 167.64 cm James Ball Other [employer] Other 06-25-2022 13:30-0500 Body mass index (BMI) [Ratio] 31.89 kg/m2 James Ball Other [employer] Other 06-25-2022 13:30-0500 Body weight 89.63 kg James Ball Other [employer] Other 06-25-2022 13:30-0500 Diastolic blood pressure 80 mm[Hg] James Smiley Other [employer] Other 06-25-2022 13:30-0500 Respiratory rate 12 /min James Smiley Other [employer] Other 06-25-2022 13:30-0500 Systolic blood pressure 122 mm[Hg] James Smiley Other [employer] Other Encounters Encounter Date Encounter Type Care Provider Facility Start: 07-15-2024 End: 07-15-2024 ambulatory [facility] Work Phone: Start: 07-15-2024 End: 07-15-2024 Encounter for general adult medical examination without abnormal findings [facility] Start: 07-15-2024 End: 07-15-2024 Patient encounter procedure [facility] Work Phone: Start: 08-14-2023 End: 08-14-2023 ambulatory LORENZO JUAREZ Not Available Start: 07-05-2023 End: 07-05-2023 ambulatory [facility] Work Phone: Start: 07-05-2023 End: 07-05-2023 Encounter for general adult medical examination without abnormal findings [facility] Start: 07-05-2023 End: 07-05-2023 Patient encounter procedure [facility] Work Phone: Start: 07-01-2023 Non-patient / Non-visit [facility] Work Phone: Start: 06-24-2023 Non-patient / Non-visit [facility] Work Phone: Start: 05-24-2023 End: 05-24-2023 ambulatory James Smiley Other [employer] Other Start: 05-24-2023 Telephone encounter James Ball [facility] Start: 03-07-2023 End: 03-07-2023 ambulatory James Dwight Other [employer] Other Start: 03-07-2023 Telephone encounter James Smiley [facility] Start: 02-28-2023 End: 02-28-2023 ambulatory James Ball Other [employer] Other Start: 02-28-2023 Telephone encounter James Ball [facility] Start: 02-26-2023 End: 02-26-2023 ambulatory James Ball Other [employer] Other Start: 02-26-2023 Telephone encounter James Smiley [facility] Start: 11-22-2022 End: 11-22-2022 ambulatory James Dwight Other [employer] Other Start: 11-22-2022 Office outpatient vi sit 15 minutes James Ball [facility] Start: 10-09-2022 End: 10-09-2022 ambulatory James Dwight Other [employer] Other Start: 10-09-2022 Telephone encounter James Ball [facility] Start: 08-20-2022 End: 08-20-2022 ambulatory James Ball Other [employer] Other Start: 08-20-2022 Office outpatient vi sit 15 minutes James Ball [facility] Start: 07-23-2022 End: 07-23-2022 ambulatory James Ball Other [employer] Other Start: 07-23-2022 Office outpatient vi sit 15 minutes James Ball [facility] Start: 06-26-2022 Encounter for genera l adult medical examination without abnormal findings JAMES DWIGHT [facility] Start: 06-25-2022 End: 06-26-2022 Encounter for general adult medical examination without abnormal findings JAMES SMILEY Facility:[facility] Start: 06-25-2022 Periodic preventive med est patient 40-64yrs James Smiley [facility] Start: 06-25-2022 End: 06-26-2022 ambulatory JAMES SMILEY Facility:[facility] Start: 06-23-2022 End: 06-23-2022 ambulatory James Smiley Other [employer] Other Start: 06-23-2022 Encounter for genera l adult medical examination without abnormal findings James Smiley [facility] Start: 06-23-2022 Telephone encounter James Smiley [facility] Start: 06-22-2022 End: 06-22-2022 ambulatory James Smiley Other [employer] Other Start: 06-22-2022 Telephone encounter James Smiley [facility] Start: 03-07-2022 End: 03-08-2022 ambulatory VINNIE GUSMAN Facility:[facility] Start: 01-15-2022 End: 01-15-2022 ambulatory VINNIE GUSMAN Facility:[facility] Start: 05-17-2021 Adult health examination James Smiley Other [employer] Other Procedures Date Procedure Procedure Detail Performing Clinician Depression screening Scarlett Smiley Other Screening for malign ant neoplasm of breast James Smiley Other Plan of Treatment Date Care Activity Detail Author Comprehensive metabo lic 1999 panel - Serum or Plasma [facility] enter Comprehensive metabo lic 1999 panel - Serum or Plasma [facility] enter MG Breast - bilateral Screening [facility] MG Breast - bilateral Screening [facility] Microalbumin [Mass/volume] in Urine [facility] Immunizations Immunization Date Immunization Notes Care Provider Maira carrington 02-23-2013 tetanus and diphther ia toxoids, adsorbed, preservative free, for adult use (5 Lf of tetanus toxoid and 2 Lf of diphtheria toxoid) James Smiley Other [facility] Payers Date Payer Category Payer Unknown [id number] 2019 Unknown [id number] 1960 Unknown [id number] 1960 Unknown [id number] [id number] 1960 Unknown [id number] [id number] 1960 Unknown [id number] [id number] Social History Date Type Detail Facility Sex Assigned At [facility] [email or web address] Other Start: 07-04-2023 End: 07-15-2024 Tobacco smoking status NHIS Never smoked tobacco (finding) [facility] Start: 1960 Sex Assigned At Female F [facility] Start: 07-15-2024 Sex Female (finding) [facility] Clinical Notes 06-23-2022 to 05-24-2023 Note Date & Type Note Facility 05-24-2023 Evaluation note Encounter Date Diagnosis Assessment Notes May, Controlled type 2 diabetes mellitus with hyperglycemia, without long-term current use of insulin (ICD-10 - E11.65) [facility] [employer] [facility] Other 11-16-2023 Evaluation note* Encounter Date Diagnosis Assessment Notes Treatment Notes Treatment Clinical Notes Feb, Type 2 diabetes mellitus with hyperglycemia, without long-term current use of insulin (ICD-10 - E11.65) [facility] [email or web address] Other 11-09-2023 Evaluation note* Encounter Date Diagnosis Assessment Notes Treatment Notes Treatment Clinical Notes Feb, Type 2 diabetes mellitus with hyperglycemia, without long-term current use of insulin (ICD-10 - E11.65) [facility] [email or web address] Other 11-07-2023 Evaluation note* Encounter Date Diagnosis [...] weight loss. D/c Trulicity and monitor FBS [employer] Other 08-03-2023 Evaluation note* Encounter Date Diagnosis [...] index [BMI] 30.0-30.9, adult (ICD-10 - Z68.30) [employer] Other 05-01-2023 Evaluation note* Encounter Date Diagnosis [...] index [BMI] 31.0-31.9, adult (ICD-10 - Z68.31) [employer] Other 04-03-2023 Evaluation note* Encounter Date Diagnosis [...] instructed to call office and hold [employer] Other 03-06-2023 Evaluation note* Encounter Date Diagnosis [...] mammogram for breast cancer (ICD-10 - Z12.31) [employer] Other 03-04-2023 Evaluation note* Encounter Date Diagnosis Assessment Notes Treatment Notes Treatment Clinical Notes Jun, Wellness examination (ICD-10 - Z00.00) [employer] Other Evaluation noteNo InformationNort [employer] Other Evaluation note* Diagnosis Onset Date Resolution Status Hyperlipemia, mixed acute Hypothyroid acute Primary hypertension acute Screening mammogram for breast cancer noneactive Wellness examination noneact verenice [facility] Work Phone: Evaluation note* Diagnosis Onset Date Resolution Status Admit Date Hyperlipemia, mixed acute July 15, 2024 11:13am Hypothyroid acute July 15, 2 025 11:13am Obesity acute July 15 11:13am Primary hypertension acute Kalyan h 2024 11:13am Screening mammogram for [facility] [facility] cancer acute July 15, 2024 11:13am Wellness examination noneactive Kalyan h 2024 11:13am [facility] Work Phone: History general Narrative - Reported* [...] Left 02/25/2013 Hospitalization History see surgical history [employer] Other Summary Purpose Family History Relationship Condition Age at Onset Recorded Date/T clary brother Heart disease Unknown Diabetes mellitus Unknown Not Specified Heart disease Unknown Relationship Condition Age at Onset Recorded Date/T clary brother Heart disease Unknown Diabetes mellitus Unknown mother Heart disease Unknown Advance Directives Advance Directive Response Recorded Date/ Time Advance Directives No May 14, 2023 1:15pm Chief Complaint and Reason for Visit Chief Complaint Amb Documentation Amb Documentation Wellness Reason for Visit Hyperlipemia, mixed Hypothyroid Primary hypertension Screening mammogram for breast cancer Wellness examination Chief Complaint Admit Date wellness July 15, 2024 11: 13am Reason for Visit Admit Date Hyperlipemia, mixed July 15, 2024 11: 13am Hypothyroid July 15, 2024 11: 13am Obesity July 15, 2024 11: 13am Primary hypertension July 15, 2024 11 :13am Screening mammogram for breast cancer [facility] 2024 11:13am Wellness examination July 15, 2024 11 :13am Additional Source Comments INFORMATION SOURCE (unrecogn ized section and content) DATE CREATED AUTHOR 06/27/2022 [facility] DATE CREATED AUTHOR AUTHOR'S ORGANIZ ATION 08/16/2023 [facility] EPIC REASON FOR VISIT (unrecogniz ed section and content) prescription refillNo Inform ationwellness1 month Follow up1 month Follow upTrulicity3 month Follow uplab [id number] resultsrefillMedication Change Care Teams (unrecognized sec tion and content) Team Status: Active Member Role Status Dates James Smiley DO Primary Care Provider Active Team Status: Inactive Member Role Status Dates James Smiley DO Primary Care Provide r, Attending Provider Active Start: July 15, 2024 End: July 15, 2024 Team Status: Active Member Role Status Dates James Smiley DO Primary Care Provider Active Team Status: Active Member Role Status Dates James Smiley DO Primary Care Provider Active Start: June 24, 2023 JOSEPH Garcia Attending Provider Active Start : June 24, 2023 Team Status: Active Member Role Status Dates James Smiley Primary Care Provider Active Start: July 01, 2023 Renita Carlin JOSEPH Attending Provider Active Start : July 01, 2023 Team Status: Inactive Member Role Status Dates James Smiley , Primary Care Provide r, Attending Provider Active Start: July 05, 2023 End: July 05, 2023 Team Status: Inactive Member Role Status Dates James Smiley , Primary Care Provide r, Attending Provider Active Start: July 15, 2024 End: July 15, 2024 Goals (unrecognized section and content) Goals may [...] BE BASED ON THE PRIMARY CLINICAL RECORDS. [employer] provides no warranty or guarantee of the accuracy or completeness of information in this document.
[2024-07-18 08:18] LABS: Basophils Percent Auto 0.5 % (0.2-2.0); Eosinophils Absolute Auto 0.2 10^3/uL (0.0-0.7); Eosinophils Percent Auto 3.6 % (0.9-7.0); Hematocrit 39.1 % (36.0-48.0); Hemoglobin 12.9 g/dL (12.0-16.0); Immature Granulocytes Abs Auto 0.01 10^3/uL (0.00-0.03); Immature Granulocytes Pct Auto 0.2 % (0.0-0.5); Lymphocytes Absolute Auto 1.2 10^3/uL (1.2-3.8); Lymphocytes Percent Auto 21.3 % (20.5-60.0); Mean Corpuscular Hemoglobin 31.2 pg (26.7-34.0); Mean Corpuscular Volume 94.7 fL (81.0-99.0); Mean Platelet Volume 12.5 fL (9.5-13.5); Monocytes Absolute Auto 0.5 10^3/uL (0.3-0.8); Monocytes Percent Auto 9.1 % (1.7-12.0); Neutrophils Absolute Auto 3.7 10^3/uL (1.4-6.5); Neutrophils Percent Auto 65.3 % (43.0-75.0); Platelet Count 159 10^3/uL (150-450); Red Blood Count 4.13 10^6/uL (4.20-5.40); Red Cell Distribution Width 13.6 % (11.0-15.0); White Blood Count 5.6 10^3/uL (4.0-11.0)
[2024-07-18 08:33] LABS: Creatinine Urine Random 49.26 mg/dL (20.00-300.00); Microalbumin Urine Random <1.3 mg/dL (<=30.0)
[2024-07-18 08:41] LABS: Estimated Average Glucose 137 mg/dL; Glycohemoglobin A1C 6.4 % (4.5-6.2)
[2024-07-18 08:42] LABS: Alanine Aminotransferase 19 U/L (14-59); Albumin Globulin Ratio 1.3; Albumin Level 3.7 g/dL (3.4-5.0); Alkaline Phosphatase 61 U/L (46-116); Anion Gap 11.3; Aspartate Amino Transferase 16 U/L (15-37); BUN Creatinine Ratio 18.2; Bilirubin Total 0.3 mg/dL (0.2-1.0); Calcium 8.7 mg/dL (8.5-10.1); Carbon Dioxide 28.9 mmol/L (21.0-32.0); Chloride 108 mmol/L (98-107); Chol HDL Ratio 2.6; Cholesterol 127 mg/dL (<=200); Estimated GFR (African America >60 (>=60 mL/min/1.73m^2); Estimated GFR (Non-African Ame >60 (>=60 mL/min/1.73m^2); Globulin 2.9 g/dL; Glucose 123 mg/dL (74-106); HDL Cholesterol 48 mg/dL (40-60); LDL Cholesterol Calculated 68.2 mg/dL; Potassium 4.2 mmol/L (3.5-5.1); Sodium 144 mmol/L (136-145); Thyroid Stimulating Hormone 1.598 uIU/mL (0.358-3.740); Total Protein 6.6 g/dL (6.4-8.2); Triglycerides 54 mg/dL (<=150); VLDL CHOLESTEROL 10.8 mg/dL
== END 2024-07-18 07:13 | disposition home or self-care (01) ==
PROVIDERS: PCP Internal Medicine; Visit Provider Internal Medicine
DX: Z00.00 Encounter for general adult medical examination without abnormal findings (principal)
CPT/HCPCS: 36415; 80053; 80061; 82043; 82570; 83036; 84443; 85025

== ENCOUNTER 2025-02-11 07:51 | Outpatient (OUT) | payer BC, SELFPAY ==
--- NOTE | 2025-02-11 | XR_ITS ---
The [address] [address] Patient Name: KIMBERLYN FLOR MRN: [id number] date: 1960 Sex: F Assigned Patient Location: [facility] Current Patient Location: [facility] Accession/Order Number: [id number] Exam Date: 02/11/2025 11:00 Report Date: 02/11/2025 11:44 At the request of: JEET PAIGE DO Procedure: XR ankle RT min 3V RIGHT ANKLE - 3 views CLINICAL DATA: Chronic right ankle pain, without injury. COMPARISON: 01/29/2024 Standing AP, lateral and oblique views were obtained. The bony structures are osteopenic. There is no evidence of fracture or dislocation. The talar dome is intact. There is minimal spurring at the dorsum of the tarsals. There are posterior and plantar calcaneal spurs. There are no significant soft tissue abnormalities. XR/XR ankle RT min 3V IMPRESSION: NO ACUTE BONY FINDINGS. Impression dictated by: Shelley Balbuena M.D. 02/11/2025 11:44 AM Dictation Location: [place] [address] Electronically authenticated by: [id number] Y Date: 02/11/2025 11:44
--- OUTSIDE RECORDS SUMMARY | 2025-02-11 07:53 | XMS_ITS | Clinical Summary ---
Author Organization [facility] Address [address] [place] [address] Care Team Providers Care Barber Instructor Name Role Phone James Quintanilla DO Primary Care Provider [phone] Allergies Active AllergyReactionsCriticalityNoted BgysLwzjjdliYrmykz18/08/2023 Other Reaction(s): Unknown Medications MedicationSigDispense QuantityRefillsLast FilledStart DateEnd DateStatus Trulicity 0.75 MG/0.5ML solution pen-injector as directed SubcutaneousActive levothyroxine (Synthroid, Levoxyl) 88 MCG tablet TAKE 1 (ONE) TABLET DAILY ON AN EMPTY STOMACH 90001/10/2023ctive Hydrocortisone Acetate 2.5 % cream Indications:Allergic dermatitis due to other chemical productApply thin layer to affected areas, twice a day as needed for flares, 30 day supply 30 g ctive atorvastatin (Lipitor) 20 MG tablet Take 20 mg by mouth in the cnsseco0808/05/2023ctive Accu-Chek FastClix Lancets [facility] USE TO TEST HOME BLOOD SUGAR EVERY DAY FOR 30 DAYS07/31/2023ctive Mounjaro 2.5 MG/0.5ML solution pen-injector INJECT DIRECTED UNDER THE SKIN ONCE ZYWRVF4707/03/2023ctive lisinopril 10 MG tablet Take by mouthActive meloxicam (Mobic) 15 MG tablet TAKE 1 TABLET BY MOUTH EVERY DAY FOR 30 DAYSActive nabumetone (Relafen) 500 MG tablet Take by mouthActive SITagliptin (Januvia) 100 MG tablet Take by mouthActive telmisartan (MIcarDIS) 20 MG tablet 07/17/2024tive Active Problems No known active problems Social History Tobacco UseTypesPacks/DayYears UsedDateSmoking Tobacco: NeverSmokeless Tobacco: Never Tobacco Cessation:Counseling Given: Not Answered CommentsUnknownSex and Gender InformationValueDate RecordedSex Assigned at BirthNot on fileLegal HvvRtovak15/15/2023 6:37 PM EDTGender IdentityNot on fileSexual OrientationNot on file Last Filed Vital Signs Vital SignReadingTime TakenCommentsBlood Ficjyedl087/76008/11/2020 12:00 PM EDT Pulse--Temperature--Respiratory Rate--Oxygen Saturation--Inhaled Oxygen Concentration--Weight--Phhwwd87.8 cm (7 )08/08/2022 12:00 PM EDTBody Mass Index- - Plan of Treatment DateTypeDepartmentCare Team (Latest Contact Info)Qmypirxegxo36/21/2026 11:30 AM EDTOffice Visit [facility] [address] [place] [address] Lona Parker MD [address] [facility] [facility] [address] [place] [address] Insurance Care Teams Team MemberRelationshipSpecialtyStart DateEnd Date James Quintanilla DO PCP - General08/07/23
--- OUTSIDE RECORDS SUMMARY | 2025-02-11 07:53 | XMS_ITS | Clinical Summary ---
Author Organization [facility] Address [address] [place], [place] [address] Care Team Providers Care Linoleum Floor Installer Name Role Phone Unavailable Primary Care Provider Unavailabl e Allergies No known active allergies Medications MedicationSigDispense QuantityRefillsLast FilledStart DateEnd DateStatus sitagliptin (JANUVIA) 100 mg ORAL tablet Take one(1) tablet daily.Active levothyroxine (LEVOTHROID) 150 mcg ORAL tablet Take one(1) tablet daily.Active lisinopril 10 mg ORAL tablet Take one(1) tablet daily.Active nabumetone 500 mg ORAL tablet Take one(1) tablet two(2) times daily as neededActive acetaminophen-hydrocodone 5-500 mg ORAL per tablet Take As DirectedActive Social History Tobacco UseTypesPacks/DayYears UsedDateSmoking Tobacco: NeverAlcohol UseStandard Drinks/WeekCommentsNo0 (1 standard drink = 0.6 oz pure alcohol)Comments UnknownSex and Gender InformationValueDate RecordedSex Assigned at BirthNot on fileLegal JdrRytnwd52/02/2012 8:33 AM ESTGender IdentityNot on fileSexual OrientationNot on file Last Filed Vital Signs Vital SignReadingTime TakenCommentsBlood Pressure--Pulse--Temperature-- Respiratory Rate--Oxygen Saturation--Inhaled Oxygen Concentration--Abocti49.6 kg (180 lb)04/05/2010 8:42 AM PWITzcibt274.1 cm (5' 6.97 )04/05/2010 8:42 AM EST Body Mass Index28.22106/06/2009 8:42 AM EST Plan of Treatment Health MaintenanceDue DateLast DoneCommentsAnxiety Lgmdgjyjc02/28/1976Depression Acfvbvymh45/28/1976Hepatitis C Gkbtwzpuz29/28/1976DTaP,Tdap,Td Vaccine (1 - Tdap)1977Mammogram Dnqhipwnq27/28/1998CT Pfrnutbtnrjn74/28/2003Cologuard (FIT-DNA)02/16/20031831Rylobipcedn14/28/2003Colorectal Cancer Jepysdcmj20/28/2003 Diabetes Oteolyxpl93/28/2003Fecal Occult Blood2003Lipid Screening 02/16/20037672Tqbajeryxjuam74/28/2003Pneumococcal Vaccine: 50+ (1 of 1 - PCV) 02/17/2008Shingrix Vaccine (1 of 2)02/17/2008one Density Pswpqwcxm94/28/2023 Advance Directive Docxxjkryx44/01/2025ovid-19 Vaccine (1 - 2024- season) 2024Influenza Vaccine (#1)2024RSV Vaccine (1 - 1-dose 75+ series) 2033 Insurance
--- OUTSIDE RECORDS SUMMARY | 2025-02-11 07:57 | XMS_ITS | CCD ---
Author Organization [facility] Care Team Providers Care Digital Media Manager Name Role Phone JAMES QUINTANILLA Admitting Unavailable JAMES QUINTANILLA Attending Unavailable BALJIT, JAMES Primary Care Unavailable JAMES QUINTANILLA Consulting Unavailable UZMA, VINNIE Admitting Unavailable UZMA, VINNIE Attending Unavailable BALJIT, JAMES Primary Care Unavailable UZMA, VINNIE Consulting Unavailable UZMA, VINNIE Admitting Unavailable UZMA, VINNIE Attending Unavailable JAMES QUINTANILLA Primary Care Unavailable UZMA, VINNIE Consulting Unavailable James Quintanilla Unavailable James Quintanilla MD Primary Care Provider SALOME JUAREZ Attending Unavailable LONA TONEY Attending Unavailable Allergies Allergy ClassificationReported Allergen(s)Allergy TypeDate of OnsetReaction(s) Facility (1 source)LeucineDrug AllergyThe [facility]ository (3 sources)nickel sulfateDrug [id number] Medications Current Medications MedicationDrug Class(es)DatesSig (Normalized)Sig (Original)0.25 MG, 0.5 MG Dose 3 ML semaglutide 0.68 MG/ML Pen Injector [Ozempic] (2 sources)Start: 00-28-1169Vhgbsex (0.25 or 0.5 MG/DOSE) 2 MG/3ML 0.25MG Subcutaneous weekly for 28 days Feb, ActiveAccu Check Compact Drum for glucomete (2 sources)Accu Check Compact Drum for glucomete Use to test home BS transcutaneous qd for 30 days ActiveamLODIPine 5 mg / telmisartan 40 mg oral tablet (1 source)Dihydropyridine Calcium Channel Terrell, Angiotensin 2 Receptor BlockerStart: 19-96-9549eztt 1 tablet by mouth once dailyTelmisartan-Amlodipine 40-5 mg tablet Active 1 TAB PO Daily 90 90 September 30, 2024 12:00amatorvastatin (12 sources)HMG-CoA Reductase InhibitorStart: 44-92-9671Vjjqugefjqap 20 mg tablet Active 0 .ROUTE .COMPLEX September 21, 2024 7:29am TAKE 1 TABLET EVERY EVENINGStart: 05-01-2024 End: 69-68-6015Igqvkszqxpnc 20 mg tablet Discontinued 0 .ROUTE .COMPLEX May 01, 2024 8:02am September 21, 2024 7:30am TAKE 1 TABLET EVERY EVENING Start: 48-90-8399Ievjqfqtguhv 20 mg tablet Active 0 .ROUTE .COMPLEX May 01, 2024 8:02am TAKE 1 TABLET EVERYEVENINGStart: 07-09-2023 End: 56-34-4787beha 1 tablet by mouth once daily in the eveningAtorvastatin 20 mg tablet Discontinued 20 MG PO Every evening July 09, 2023 12:00am May 01, 2024 8:03amtake 1 tablet by mouth every twenty-four hours Atorvastatin Calcium 40 MG 1 tablet Orally Once a day Active0.5 ml dulaglutide 1.5 mg/ml auto-injector (9 sources)GLP-1 Receptor AgonistTrulicity 0.75 MG/0.5ML solution pen-injector as directed Subcutaneous Activeinject 1.5 mg by subcutaneous injection every weekTrulicity 1.5 MG/0.5ML 1.5mg Subcutaneous weekly Activehydrocortisone acetate 25 mg/ml topical cream (3 sources)CorticosteroidStart: 46-34-5668Fubedffuqpfeyw Acetate 2.5 % cream Indications: Allergic dermatitis due to other chemical product Apply thin layer to affected areas, twice a day as needed for flares, 30 day supply 30 g 1 02/27/2023ctivelevothyroxine sodium 0.088 mg oral tablet (19 sources)l-ThyroxineStart: 74-61-6466Ahiajowztrrtl 88 mcg tablet Active 0 .ROUTE .COMPLEX September 27, 2023 7:18am TAKE 1 (ONE) TABLET DAILY ON AN EMPTY STOMACH 90Start: 01-10-2023 End: 67-55-3272ento 1 tablet by mouth once dailyLevothyroxine 88 mcg tablet Discontinued 88 MCG PO Daily July 04, 2023 12:00am September 27, 2023 7:18am ON AN EMPTY STOMACHLevothyroxine Sodium 88 MCG TAKE 1 (ONE) TABLET DAILY ON AN EMPTY STOMACH for 90 Activelisinopril 10 mg oral tablet (2 sources)Angiotensin Converting Enzyme Inhibitorlisinopril 10 MG tablet Take by mouth Activemeloxicam 15 mg oral tablet (2 sources)Nonsteroidal Anti-inflammatory Drugtake 1 tablet by mouth once daily meloxicam (Mobic) 15 MG tablet TAKE 1 TABLET BY MOUTH EVERY DAY FOR 30 DAYS Activemounjaro 2.5 mg/0.5ml solution pen-injector (1 source)Start: 25-17-5600Ispkmrbk 2.5 MG/0.5ML as directed Subcutaneous weekly for 28 days May, ActiveMounjaro 2.5 MG/0.5ML solution pen-injector (3 sources)Start: 54-62-0467Cibgvjfg 2.5 MG/0.5ML solution pen-injector INJECT DIRECTED UNDER THE SKIN ONCE WEEKLY 07/03/2023 Activenabumetone 500 mg oral tablet (2 sources)Nonsteroidal Anti-inflammatory Drugnabumetone (Relafen) 500 MG tablet Take by mouth Activephentermine hydrochloride 37.5 mg oral tablet (6 sources)Sympathomimetic Amine AnorecticStart: 01-86-4841jntw 1 tablet by mouth once daily before breakfastAdipex-P 37.5 MG 1 tablet before breakfast Orally Once a day for 30 days August, ActiveStart: 10-91-1340uilg 1 tablet by mouth every twenty-four hoursAdipex-P 37.5 MG 1 tablet Orally Once a day for 30 days Jul, ActiveStart: 92-10-3984xtjv 1 tablet by mouth every twenty- four hoursAdipex-P 37.5 MG 1 tablet Orally Once a day for 30 days Jun, ActiveSITagliptin 100 mg oral tablet (2 sources)Dipeptidyl Peptidase 4 InhibitorSITagliptin (Januvia) 100 MG tablet Take by mouth Activetelmisartan 20 mg oral tablet (4 sources)Angiotensin 2 Receptor BlockerStart: 20-34-0585hvoktroeizf (MIcarDIS) 20 MG tablet 07/17/2024 ActiveTirzepatide (3 sources)Start: 07-39-6255Feeihytogjn 12.5 mg/0.5 mL pen injector Active 12.5 MG SUBCUT every week 6 September 07, 2024 12:47pmStart: 07-15-2024 End: 62-37-9688Uagezmoeygr 12.5 mg/0.5 mL pen injector Discontinued 12.5 MG SUBCUT .COMPLEX 6 90 July 15, 2024 11:39am September 07, 2024 12:47pm 12.5 mg subcutaneously;Start: 63-64-2002Hwmnxwwukcw (Mounjaro) 12.5 mg/0.5 mL pen injector Active 12.5 MG SUBCUT .COMPLEX 6 July 15, 2024 11:39am 12.5 mg subcutaneously; Completed/Discontinued Medications MedicationDrug Class(es)DatesSig (Normalized)Sig (Original)olmesartan medoxomil 40 mg oral tablet (10 sources)Angiotensin 2 Receptor BlockerStart: 07-04-2023 End: 01-91-8737crit 1 tablet by mouth once dailyOlmesartan 40 mg tablet Discontinued 40 MG PO Daily July 04, 2023 12:00am July 05, 2023 1:40pm Start: 58-69-8488ssji 1 tablet by mouth every twenty-four hoursOlmesartan Medoxomil 20 MG 1 tablet Orally Once a day for 30 days August, Activetake 1 tablet by mouth once dailyOlmesartan Medoxomil 40 MG TAKE 1 TABLET BY MOUTH EVERY DAY for 30 ActiveTirzepatide (15 sources)Start: 07-05-2023 End: 53-72-1695Fsgpkfocdpr (Mounjaro) 2.5 mg/0.5 mL pen injector Discontinued 2.5 MG SUBCUT every week June 12:00am September 12, 2023 4:27pmStart: 81-38-3875Rdcvnmhfuev (Mounjaro) 2.5 mg/0.5 mL pen injector Active 2.5 MG SUBCUT every week July 05, 2023 12:00amStart: 07-01-2023 End: 66-42-5275Gpptugpooix (Mounjaro) 2.5 mg/0.5 mL pen injector Discontinued 2.5 MG SUBCUT every week 2 July 01, 2023 12:42pm July 04, 2023 4:43pm Start: 07-01-2023 End: 10-49-6582Ymnvzuavofj (Mounjaro) 2.5 mg/0.5 mL pen injector Discontinued 5 MG SUBCUT every week July 01, 2023 9:41am July 01, 2023 12:43pmStart: 06-24-2023 End: 35-22-9836Nvlqyvmvisa (Mounjaro) 2.5 mg/0.5 mL pen injector Discontinued 0 .ROUTE .COMPLEX 2 June 24, 2023 1:59pm July 01, 2023 9:42am INJECT DIRECTED UNDER THE SKIN ONCE WEEKLYStart: 06-24-2023 End: 01-56-8797Dkngrxjzfgq (Mounjaro) 2.5 mg/0.5 mL pen injector Discontinued 2.5 MG SUBCUT every week June 24, 2023 1:00am June 24, 2023 2:00pm Tirzepatide (4 sources)Start: 09-09-2023 End: 48-52-6430Exxskuzjdlx (Mounjaro) 5 mg/0.5 mL pen injector Discontinued 0 .ROUTE .COMPLEX 6 September 09, 2023 1:03pm September 12, 2023 4:28pm INJECT THE CONTENTS OF ONE PEN SUBCUTANEOUSLY WEEKLY DIRECTEDStart: 07-09-2023 End: 62-09-5465Sdahpkihbdg (Mounjaro) 5 mg/0.5 mL pen injector Discontinued 5 MG SUBCUT every week 6 July 09, 2023 12:00am September 09, 2023 1:04pm Tirzepatide (4 sources)Start: 10-28-2023 End: 62-53-2902Uojhsmtfbbu 7.5 mg/0.5 mL pen injector Discontinued 7.5 MG SUBCUT every week 6 October 28, 2023 5:39pm January 17, 2024 4:20pmStart: 09-12-2023 End: 24-20-8174Dtvedimlphy 7.5 mg/0.5 mL pen injector Discontinued 7.5 MG SUBCUT every week 6 September 12, 2023 4:26pm October 28, 2023 5:39pmTirzepatide (6 sources)Start: 05-16-2024 End: 00-25-5341Oizulhgwmyt (Mounjaro) 10 mg/0.5 mL pen injector Discontinued 0 .ROUTE .COMPLEX 6 May 16, 2024 8:42am July 15, 2024 11:41am INJECT THE CONTENTS OF ONE PEN SUBCUTANEOUSLY WEEKLY DIRECTEDStart: 01-29-2024 End: 06-73-4548Mkxerreexmc 10 mg/0.5 mL pen injector Discontinued 10 MG SUBCUT every week 6 January 29, 2024 1:49pm May 16, 2024 8:42amStart: 01-17-2024 End: 08-42-8945Nendlolgsum 10 mg/0.5 mL pen injector Discontinued 10 MG SUBCUT every week January 17, 2024 4:19pm January 29, 2024 1:50pm Problems Active Problems Problem ClassificationProblemDateDocumented DateEpisodic/ChronicCoagulation and hemorrhagic disorders (20 sources)Immune thrombocytopenic purpura; Translations: [Immune thrombocytopenic purpura] Resolved: 44-58-8152MsteiatNqducayfam and other anemia (5 sources)Anemia; Translations: [Anemia, unspecified]EpisodicDiabetes mellitus with complications (20 sources)Hyperglycemia due to type 2 diabetes mellitus; Translations: [Type 2 diabetes mellitus with hyperglycemia]ChronicDiabetes mellitus without complication (7 sources)Type 2 diabetes mellitus without complication; Translations: [Type 2 diabetes mellitus without complications]ChronicDiseases of white blood cells (16 sources)Leukopenia; Translations: [Decreased white blood cell count, unspecified]ChronicDisorders of lipid metabolism (20 sources)Mixed hyperlipidemia; Translations: [Mixed hyperlipidemia]Onset: 680935-21-8454OaetqpmAuvesncoa hypertension (20 sources)Essential hypertension; Translations: [Essential (primary) hypertension]ChronicNausea and vomiting (11 sources)Nausea; Translations: [Nausea]EpisodicNeoplasms of unspecified nature or uncertain behavior (2 sources)Neoplastic disease; Translations: [Neoplasm of unspecified behavior of bone, soft tissue, and skin]53-72-0708UsxdfrwbZkutmmwzoikqml (16 sources)Localized, primary osteoarthritis of the pelvic region and thigh; Translations: [Unilateral primaryosteoarthritis, left hip]ChronicOther and unspecified benign neoplasm (2 sources)Melanocytic nevus of trunk; Translations: [Melanocytic nevi of trunk] 44-21-7941VybusmyiMrgzl circulatory disease (2 sources)Elevated blood-pressure reading, without diagnosis of hypertension EpisodicOther circulatory disease (2 sources)Spider nevus; Translations: [Nevus, non-neoplastic]27-37-5373Hdcadmyz Other gastrointestinal disorders (5 sources)Abnormal feces; Translations: [Other fecal abnormalities]Episodic Other nutritional; endocrine; and metabolic disorders (20 sources)Body mass index 30+ - obesity; Translations: [Obesity, unspecified] ChronicOther nutritional; endocrine; and metabolic disorders (5 sources)Obesity, unspecified; Translations: [Obesity, unspecified]Chronic Other nutritional; endocrine; and metabolic disorders (14 sources)Obesity; Translations: [Other obesity due to excess calories] 83-57-3762MxxbqssRntwg nutritional; endocrine; and metabolic disorders (2 sources)Other obesity due to excess caloriesChronicOther nutritional; endocrine; and metabolic disorders (1 source)Body mass index (BMI) 31.0-31.9, adultChronicOther nutritional; endocrine; and metabolic disorders (1 source)Body mass index (BMI) 30.0-30.9, adultChronicOther screening for suspected conditions (not mental disorders or infectious disease) (6 sources)Encounter for screening mammogram for malignant neoplasm of breast; Translations: [Other screening mammogram]EpisodicOther skin disorders (2 sources)Seborrheic keratosis; Translations: [Other seborrheic keratosis] 23-39-8170QkoqcxhyRoecm skin disorders (2 sources)Lentiginosis; Translations: [Other melanin hyperpigmentation] 06-73-6496FccofslcQrbxc skin disorders (2 sources)Sebaceous hyperplasia; Translations: [Other specified follicular disorders]80-83-3064NonrlgbmMduimel disorders (20 sources)Omar thyroiditis; Translations: [Autoimmune thyroiditis] 81-95-7337AjnxtziXfdwjbbgttto (3 sources)CONTACT W/AND (SUSP) EXPOS COVID-19; Translations: [CONTACT W/AND (SUSP) EXPOS COVID-19]Onset: 03-10-2022 Past or Other Problems Problem ClassificationProblemDateDocumented DateEpisodic/ChronicAcute bronchitis (5 sources)Acute bronchitis; Translations: [Acute bronchitis, unspecified]Onset: 63-74-5327ZihzhvamUezfx aftercare (5 sources)Therapeutic drug level - finding; Translations: [Encounter for therapeutic drug level monitoring]Onset: 06-84-0435AfmhhrkqPpkaz upper respiratory infections (5 sources)Acute maxillary sinusitis; Translations: [Acute maxillary sinusitis, unspecified]Onset: 87-80-7026MdihunqfZzvyptd and strains (5 sources)Sprain of medial collateral ligament of knee; Translations: [Sprain of medial collateral ligament of right knee, initial encounter]Onset: 10-31-2018 EpisodicSuperficial injury; contusion (5 sources)Contusion of foot; Translations: [Contusion of unspecified foot, initial encounter]Onset: 96-98-5805WgaynafiAzdpbjdskugk (1 source)CONTACT W/AND (SUSP) EXPOS COVID-19; Translations: [CONTACT W/AND (SUSP) EXPOS COVID-19]Onset: 03-07-2022 Results Test NameValueInterpretationReference RangeFacilityNo Panel Informationon 69-30-8513Smck of biopsy: tangential Informed consent: discussed and consent obtained Informed consent comment: The risks and benefits of the biopsy were discussed. Risks include but are not limited to bleeding, infection, scarring, pain, and nerve damage. An opportunity to ask questions prior to the procedure was permitted and all questions were answered. Patient was prepped and draped in usual sterile fashion: area cleansed with alcohol. Anesthesia: the lesion was anesthetized in a standard fashion Anesthetic: 1% lidocaine w/ epinephrine 1-100,000 buffered w/ 8.4% NaHCO3 Instrument used: DermaBlade Hemostasis achieved with: electrodesiccation Outcome: patient tolerated procedure well Outcome comment: The specimen was placed in a prelabeled formalin container to be sent for pathology Post-procedure details: sterile dressing applied and wound care instructions given Post-procedure details comment: Emphasized need to contact clinic for any signs of infection, uncontrollable bleeding, or complications. Dressing type: bandage Additional details: Photo taken yes Amount of lidocaine used: 0.5 [facility] HealthcareBasophils Auto (Bld) [#/Vol]on 34-58-1194Cvhtctjxu (Bld) [#/Vol]Automated basophil count0.0-0.1 [facility] HospitalBasophils/100 WBC Auto (Bld)on 07-18-2024 Basophils/100 WBC (Bld)Automated basophil %0.2-2.0[facility] HospitalCholesterol in LDL Calc [Mass/Vol]on 72-71-4231Uncgvumjlot in LDL [Mass/Vol]Cholesterol in LDL [Mass/volume] in Serum or Plasma by calculation [facility] HospitalComment on above:<100 mg/dl NEZNZNF174-696 mg/dl NEAR OR ABOVE AARKCMG764-622 mg/dl BORDERLINE JSPH393-903 mg/dl HIGH>190 mg/dl VERY HIGHCholesterol in VLDL Calc [Mass/Vol]on 63-65-5133Zectknkjuca in VLDL [Mass/Vol]Cholesterol in VLDL [Mass/volume] in Serum or Plasma by calculationOhiohealth Hardin Memorial HospitalEosinophils/100 WBC Auto (Bld)on 69-55-6355Ovazfrponpa/100 WBC (Bld)Automated eosinophil %0.9-7.0[facility] HospitalErythrocyte distribution width Auto (RBC) [Ratio]on 78-37-6096Ehzimgijkiw distribution width (RBC) [Ratio]Erythrocyte distribution width [Ratio] by Automated count11.0-15.0[facility] Estimated glomerular filtration rate (GFR) non- Americanon 07-18-2024 GFR/1.73 sq M.predicted among non-blacks MDRD (S/P/Bld) [Vol rate/Area]Estimated glomerular filtration rate (GFR) non->=60 mL/min/1.73m 2 [facility] HospitalGlobulin Calc (S) [Mass/Vol]on 07-18-2024 Globulin (S) [Mass/Vol]Serum globulin measurement by calculation (mass/volume) [facility] HospitalGlucose mean value [Mass/volume] in Blood Estimated from glycated hemoglobinon 00-48-1487Jypvcqs glucose Estimated from glycated hemoglobin (Bld) [Mass/Vol]Glucose mean value [Mass/volume] in Blood Estimated from glycated hemoglobinOhiohealth Hardin Memorial HospitalHematocrit Auto (Bld) [Volume fraction]on 90-03-5310Evbanhmltn (Bld) [Volume fraction] Hematocrit [Volume Fraction] of Blood by Automated count36.0-48.0[facility] HospitalHemoglobin A1c percentageon 36-92-2124UvG8f (Bld) [Mass fraction]Hemoglobin A1c percentageHigh4.5-6.2FProMedica Fostoria Community Hospital Comment on above:ADA RECOMMENDED LIMIT 4.0 - 6.0ADA THERAPEUTIC TARGET < 7.0ACTION SUGGESTED> 7.0Hemoglobin [Mass/volume] in Bloodon 49-16-1104Phnnwndtpv (Bld) [Mass/Vol]Hemoglobin [Mass/volume] in Blood12.0-16.0[facility] HospitalLaboratory - Chemistry and Chemistry - challengeon 07-18-2024 Albumin [Mass/Vol]3.7 g/dL3.4-5.0[facility] HospitalALP [Catalytic activity/Vol]61 U/Y25-293SeiwtleqdOhiohealth Hardin Memorial HospitalALT [Catalytic activity/Vol]19 U/B69-54IiscdpgpbOhiohealth Hardin Memorial HospitalAST [Catalytic activity/Vol]16 U/N76-90IznwscavuOhiohealth Hardin Memorial HospitalBilirubin [Mass/Vol]0.3 mg/dL0.2-1.0[facility] HospitalCalcium [Mass/Vol]8.7 mg/dL 8.5-10.1FProMedica Fostoria Community HospitalChloride [Moles/Vol]108 mmol/LHigh 98-107[facility] HospitalCholesterol [Mass/Vol]127 mg/dL<=200 [facility] HospitalCholesterol in HDL [Mass/Vol]48 mg/dL40-60 [facility] HospitalComment on above:> or =60 mg/dl - LOW CARDIOVASCULAR RISK<40 mg/dl - HIGH CARDIOVASCULAR RISKCO2 [Moles/Vol]28.9 mmol/L21.0-32.0[facility] HospitalCreatinine [Mass/Vol]0.77 mg/dL 0.55-1.02[facility] HospitalGFR/1.73 sq M.predicted MDRD (S/P/Bld) [Vol rate/Area]mL/min/{1.73_m2}>=60 mL/min/1.73m 2FProMedica Fostoria Community HospitalGlucose [Mass/Vol]123 mg/uCPxvc91-195MntrqkbnoOhiohealth Hardin Memorial Hospital Potassium [Moles/Vol]4.2 mmol/L3.5-5.1FProMedica Fostoria Community HospitalProtein [Mass/Vol]6.6 g/dL6.4-8.2FSelect Medical Specialty Hospital - Columbusodium [Moles/Vol]144 mmol/S757-019UizottfgmOhiohealth Hardin Memorial HospitalTriglyceride [Mass/Vol]54 mg/dL <=150[facility] HospitalTSH Qn1.598 m[IU]/L0.358-3.740[facility] HospitalUrea nitrogen [Mass/Vol]14.0 mg/dL7.0-18.0[facility] HospitalUrea nitrogen/Creatinine [Mass ratio]18.2 mg/mgOhiohealth Hardin Memorial HospitalLaboratory - Hematology and Cell countson 07-18-2024 Immature granulocytes/100 WBC (Bld)0.2 %0.0-0.5FProMedica Fostoria Community Hospital Leukocytes [#/volume] corrected for nucleated erythrocytes in Blood by Automated counon 61-05-2037IRH corrected for nucl RBC Auto (Bld) [#/Vol]Leukocytes [#/volume] corrected for nucleated erythrocytes in Blood by Automated coun 4.0-11.0[facility] HospitalLymphocytes Auto (Bld) [#/Vol]on 26-88-6736Vmclyhmrhph (Bld) [#/Vol]Lymphocytes [#/volume] in Blood by Automated count1.2-3.8[facility] HospitalLymphocytes/100 WBC Auto (Bld)on 24-36-2767Khzllmyyzwq/100 WBC (Bld)Lymphocytes/100 leukocytes in Blood by Automated count20.5-60.0[facility] HospitalMCH Auto (RBC) [Entitic mass]on 24-47-1421XTO (RBC) [Entitic mass]MCH [Entitic mass] by Automated count 26.7-34.0[facility] HospitalHC Auto (RBC) [Mass/Vol]on 18-76-4282CZDW (RBC) [Mass/Vol]MCHC [Mass/volume] by Automated count29.9-35.2 [facility] HospitalMCV Auto (RBC) [Entitic vol]on 53-12-7933BPD (RBC) [Entitic vol]MCV [Entitic volume] by Automated count81.0-99.0[facility] HospitalMicroalbumin [Mass/volume] in Urineon 19-24-0769Pdnzvai DL <= 20 mg/L (U) [Mass/Vol]Microalbumin [Mass/volume] in Urine<=30.0[facility] HospitalMonocytes Auto (Bld) [#/Vol]on 96-57-5743Vpusougbl (Bld) [#/Vol]Automated blood monocyte count0.3-0.8[facility] Monocytes/100 WBC Auto (Bld)on 66-33-3687Vgtpyinbm/100 WBC (Bld)Automated monocyte %1.7-12.0[facility] HospitalNeutrophils Auto (Bld) [#/Vol]on 06-67-9977Zlpmbxuphpr (Bld) [#/Vol]Neutrophils [#/volume] in Blood by Automated count1.4-6.5FProMedica Fostoria Community HospitalNeutrophils/100 WBC Auto (Bld)on 09-59-6855Qjywlxiocpy/100 WBC (Bld)Automated neutrophil %43.0-75.0 [facility] HospitalNo Panel Informationon 71-33-5653Ajwxwafpoyo # (Auto)0.2 10 3/uL0.0-0.7FProMedica Fostoria Community HospitalImmature Granulocyte # (Auto)0.01 10 3/uL0.00-0.03[facility] HospitalUrine Random Netyuzvtgt19.26 mg/dL20.00-300.00[facility] HospitalPlatelet mean volume Auto (Bld) [Entitic vol]on 57-49-9875Fztfgofs mean volume (Bld) [Entitic vol]Platelet mean volume [Entitic volume] in Blood by Automated count9.5-13.5 [facility] HospitalPlatelets Auto (Bld) [#/Vol]on 07-18-2024 Platelets (Bld) [#/Vol]Platelets [#/volume] in Blood by Automated bzebo918-294 [facility] HospitalRBC Auto (Bld) [#/Vol]on 08-70-4623ZFC (Bld) [#/Vol]Erythrocytes [#/volume] in Blood by Automated countLow4.20-5.40[facility] Healtherum or plasma albumin/globulin mass ratioon 07-18-2024 Albumin/Globulin [Mass ratio]Serum or plasma albumin/globulin mass ratio [facility]altherum or plasma anion gap determinationon 95-50-5960Vyhhu gap [Moles/Vol]Serum or plasma anion gap determinationMercy Healtherum or plasma total cholesterol/high density lipoprotein (HDL) cholesterol mass kristi 94-32-6757Ambonhfhjfo.total/Cholesterol in HDL [Mass ratio]Serum or plasma total cholesterol/high density lipoprotein (HDL) cholesterol mass [facility] HospitalComment on above:3.3 - 4.4 LOW RISK4.4 - 7.1 AVERAGE RISK7.1 - 11.0 MODERATE RISK>11.0 HIGH RISKCBC AUTO DIFFon 45-37-8335DRRH #0.0 103/ulNormal0.0-0.1[facility] GeneralComment on above:Performed By: #### CBC #### [facility] [address] [address] [address] Lauren MatthewsBasophils/100 WBC (Bld)0.5 %Normal0.2-2.0[facility] Comment on above:Performed By: #### CBC #### [facility] [address] [address] [address] Lauren Melissa #0.1 103/ulNormal0.0-0.7[facility] GeneralComment on above: Performed By: #### CBC #### [facility] [address] [address] [address] Lauren Trevizoosinophils/100 WBC (Bld)2.4 %Normal0.9-7.0[facility] Comment on above:Performed By: #### CBC #### [facility] [address] [place] [address] Dr. Lauren Trevizorythrocyte distribution width (RBC) [Ratio]13.5 %Zqdify04.0-15.0 [facility] GeneralComment on above:Performed By: #### CBC #### [facility] [address] [place] [address] Dr. Lauren MatthewsHematocrit (Bld) [Volume fraction]40.2 %Evigld66.0-48.0[facility] Ohioment on above:Performed By: #### CBC #### [facility] [address] [place] [address] Dr. Lauren MatthewsHemoglobin (Bld) [Mass/Vol]13.5 g/kDRzultd36.0-16.0[facility] GeneralComment on above:Performed By: #### CBC #### [facility] [address] [place] [address] Dr. Lauren Bond #0.01 10e3/ulNormal0.00-0.03[facility] GeneralComment on above:Performed By: #### CBC #### [facility] [address] [place] [address] Dr. Lauren Bond %0.2 %Normal0.0-0.5[facility] GeneralComment on above: Performed By: #### CBC #### [facility] [address] [place] [address] Dr. Lauren Zaragoza #1.2 103/ulNormal1.2-3.8[facility] GeneralComgarden city hospital on above:Performed By: #### CBC #### [facility] [address] [place] [address] Dr. Lauren Spencermphocytes/100 WBC (Bld)28.5 %Udgknu10.5-60.0[facility] GeneralComment on above:Performed By: #### CBC #### [facility] [address] [place] [address] Dr. Lauren MerchantUAL DIFF REQNONormalThe [facility] GeneralComment on above: Performed By: #### CBC #### [facility] [address] [place] [address] Dr. Lauren Pop (RBC) [Entitic mass]30.5 rbNqobhq56.7-34.0[facility] [place] GeneralComment on above:Performed By: #### CBC #### [facility] [address] [address] [address] Lauren GreenbergHC (RBC) [Mass/Vol]33.6 g/xKYkqpyp01.9-35.2The [facility] GeneralComment on above:Performed By: #### CBC #### [facility] [address] [place] [address] Dr. Lauren GreenbergV (RBC) [Entitic vol]90.7 iBDrbcir91.0-99.0The [facility] GeneralComment on above:Performed By: #### CBC #### [facility] [address] [place] [address] Dr. Lauren Trujillo #0.3 103/ulNormal0.3-0.8The [facility] GeneralComment on above:Performed By: #### CBC #### [facility] [address] [place] [address] Dr. Lauren Gannocytes/100 WBC (Bld)8.0 %Normal1.7-12.0[facility] Comment on above:Performed By: #### CBC #### [facility] [address] [place] [address] Dr. Lauren Gilmore #2.5 103/ulNormal1.4-6.5The [facility] GeneralComment on above:Performed By: #### CBC #### [facility] [address] [place] [address] Dr. Lauren Sousautrophils/100 WBC (Bld)60.4 %Uifmpt05.0-75.0The [facility] GeneralComment on above:Performed By: #### CBC #### [facility] [address] [place] [address] Dr. Lauren Minayalet mean volume (Bld) [Entitic vol]12.1 fLNormal9.5-13.5The [facility] GeneralComment on above:Performed By: #### CBC #### [facility] [address] [place] [address] Dr. Lauren MatthewsPLT169 103/xeZichim579-368Ujz [facility] GeneralComment on above: Performed By: #### CBC #### [facility] [address] [address] [address] Lauren MatthewsRBC4.43 106/ulNormal4.20-5.40The [facility]Comg[facility] on above:Performed By: #### CBC #### [facility] [id number] Lauren MatthewsWBC4.1 103/ulNormal4.0-11.0The [facility] GeneralComment on above: Performed By: #### CBC #### [facility] [address] [address] [address] Lauren MatthewsComprehensive Metabolic Panelon 83-35-2893Nbmtfve [Mass/Vol] 4.718700 g/dL3.4-5.0 g/dLMedical Reimbursements of [place] [employer] Other Calcium [Mass/Vol]9.9873980 mg/dL8.5-10.1 mg/dLMagnetic Other CO2 [Moles/Vol]28.11936717 mmol/L21.0-32.0 mmol/LNphelps health [employer] Other Creatinine [Mass/Vol]0.31989592 mg/dL0.55-1.02 mg/dL [employer] Other Potassium [Moles/Vol]4.51077286 mmol/L3.5-5.1 mmol/L [employer] Other Protein [Mass/Vol]7.600132 g/dL6.4-8.2 g/dLAcademia.edu Other Urea nitrogen [Mass/Vol]13.2991633 mg/dL7.0-18.0 mg/dL [employer] Other Comprehensive Metabolic Panelsee noteAcademia.edu Other Comprehensive Metabolic Tpexo049 mmol/A924-428 mmol/L [employer] Other Comprehensive Metabolic Qrxrt212 mg/dLCritically high 74-106 mg/dLNoGeisinger [facility] [employer] Other Comprehensive Metabolic Panel>60 mL/min/1.73m2>=60 mL/min/1.95e5Zcrzz Coast [employer] Other Comprehensive Metabolic Panel0.5 mg/dL0.2-1.0 mg/dL [facility] [employer] Other Comprehensive Metabolic Panel3.2 g/dLNoGeisinger [facility] [employer] Other GLYCOHEMOGLOBIN A1Con 38-36-4298KHR RECOMMENDATIONSEE [facility]huja Medical CenterComment on above:Result Comment: ADA RECOMMENDED LIMIT 4.0 - 6.0 ADA THERAPEUTIC TARGET < 7.0 ACTION SUGGESTED > 7.0Performed By: #### A1C #### [facility] [address] [place] [address] Dr. Lauren MatthewsGlucose [Mass/Vol]131 mg/dLAdams County Regional Medical CenterComgarden city hospital on above:Performed By: #### A1C #### [facility] [address] [place] [address] Dr. Lauren MatthewsHbA1c (Bld) [Mass fraction]6.2 %Normal4.5-6.2[facility] CenterComgarden city hospital on above:Performed By: #### A1C #### [facility] [address] [place] [address] Dr. Lauren MatthewsLIPID PROFILEon 89-94-0374HBDZ-HDL RATIO NORMSEE [facility] Medical CenterComgarden city hospital on above:Result Comment: 3.3 - 4.4 LOW RISK 4.4 - 7.1 AVERAGE RISK 7.1 - 11.0 MODERATE RISK >11.0 HIGH RISKPerformed By: #### CMP, LIPID, TSH #### [facility] [address] [place] [address] Dr. Lauren MatthewsCholesterol [Mass/Vol]218 mg/dLCritically high<=200 mg/dLThe Jennings HospitalComment on above:Performed By: #### CMP, LIPID, TSH #### [facility] [address] [address] [address] Lauren MatthewsCholesterol in HDL [Mass/Vol]47 mg/dL40-60 mg/dLThe [facility]Comgarden city hospital on above:Performed By: #### CMP, LIPID, TSH #### [facility] [address] [address] [address] Lauren MatthewsCholesterol in LDL [Mass/Vol]155.8 mg/dLAdams County Regional Medical CenterComment on above:Performed By: #### CMP, LIPID, TSH #### [facility] [address] [place] [address] Dr. Lauren Daniel.total/Cholesterol in HDL [Mass ratio]4.6 {ratio}The [facility] GeneralComment on above:Performed By: #### CMP, LIPID, TSH #### [facility] [address] [place] [address] Dr. Lauren Davis NORMAL> or = 60 mg/dl - LOW CARDIOVASCULAR RISK <40 mg/dl - HIGH CARDIOVASCULAR RISKAdams County Regional Medical CenterComment on above:Performed By: #### CMP, LIPID, TSH #### [facility] [address] [place] [address] Dr. Lauren Vilchis CALC NORMALSEE BELOWAdams County Regional Medical CenterComment on above:Result Comment: <100 mg/dl OPTIMAL 100 - 129 mg/dl NEAR OR ABOVE OPTIMAL 130 - 159 mg/dl BORDERLINE HIGH 160 - 189 mg/dl HIGH >190 mg/dl VERY HIGH Performed By: #### CMP, LIPID, TSH #### [facility] [address] [place] [address] Dr. Lauren MatthewsTriglyceride [Mass/Vol]76 mg/dL<=150 mg/dLAshtabula County Medical Center Comment on above:Performed By: #### CMP, LIPID, TSH #### [facility] [address] [place] [address] Dr. Lauren HahnLDL CALC15.2 mg/dLAdams County Regional Medical CenterComment on above: Performed By: #### CMP, LIPID, TSH #### [facility] [address] [address] [address] Lauren MatthewsLipid Panelon 41-38-5768Ogrzk Panel> or = 60 mg/dl - LOW CARDIOVASCULAR RISK <40 mg/dl - HIGH CARDIOVASCULAR RISKMedical Reimbursements of America [employer] Other Lipid PanelSEE BELOWNojefferson memorial hospital Tw[employer] Other Lipid Xytkd638.8 mg/dLNoMedical Reimbursements of [place] [employer] Other Lipid Panel15.2 mg/dLMedical Reimburse[employer] of [place] [employer] Other PROF 14(COMP METB)on 85-75-8237Csaerde [Mass/Vol]4.0 g/dLNormal3.4-5.0The [facility] GeneralComment on above:Performed By: #### CMP, LIPID, TSH #### [facility] [address] [place] [address] Dr. Lauren MatthewsAlbumin/Globulin [Mass ratio]1.3 {ratio}[facility] Comment on above:Performed By: #### CMP, LIPID, TSH #### [facility] [address] [address] [address] Lauren Pendleton [Catalytic activity/Vol]62 U/L46-116 U[facility] Comment on above:Performed By: #### CMP, LIPID, TSH #### [facility] [address] [address] [address] Lauren Norris [Catalytic activity/Vol]19 U/L14-59 U[facility] Comment on above:Performed By: #### CMP, LIPID, TSH #### [facility] [address] [address] [address] Lauren Mehta gap [Moles/Vol]13.6 mmol/City HospitalComment on above:Performed By: #### CMP, LIPID, TSH #### [facility] [address] [place] [address] Dr. Lauren Salas [Catalytic activity/Vol]22 U/L15-37 U/[facility] Comment on above:Performed By: #### CMP, LIPID, TSH #### [facility] [address] [address] [address] Lauren MatthewsBilirubin [Mass/Vol]0.5 mg/dLNormal0.2-1.0[facility] Comment on above:Performed By: #### CMP, LIPID, TSH #### [facility] [address] [place] [address] Dr. Lauren MatthewsCalcium [Mass/Vol]9.1 mg/dLNormal8.5-10.1[facility] Comment on above:Performed By: #### CMP, LIPID, TSH #### [facility] [address] [place] [address] Dr. Lauren MatthewsChloride [Moles/Vol]105 mmol/L98-107 mmol/[facility] Comment on above:Performed By: #### CMP, LIPID, TSH #### [facility] [address] [place] [address] Dr. Lauren MatthewsCO2 [Moles/Vol]28.6 mmol/FVdgumz17.0-32.0[facility] Comment on above:Performed By: #### CMP, LIPID, TSH #### [facility] [address] [place] [address] Dr. Lauren MatthewsCreatinine [Mass/Vol]0.60 mg/dLNormal0.55-1.02[facility] CenterComment on above:Performed By: #### CMP, LIPID, TSH #### [facility] [address] [place] [address] Dr. Lauren TrevizoGFR-AF INDONESIAN>60Normal>=60The [facility] GeneralComment on above:Performed By: #### CMP, LIPID, TSH #### [facility] [address] [place] [address] Dr. Lauren TrevizoGFR-NON AF INDONESIAN>60Normal>=60The [facility] GeneralComment on above:Performed By: #### CMP, LIPID, TSH #### [facility] [address] [place] [address] Dr. Lauren MatthewsGlobulin (S) [Mass/Vol]3.2 g/dLNormalThe [facility] GeneralComment on above:Performed By: #### CMP, LIPID, TSH #### [facility] [address] [address] [address] Lauren MatthewsGlucose [Mass/Vol]140 mg/dLCritically nhix86-772Bcj [facility] GeneralComment on above:Performed By: #### CMP, LIPID, TSH #### [facility] [address] [place] [address] Dr. Lauren MatthewsPotassium [Moles/Vol]4.2 mmol/LNormal3.5-5.1[facility] Comment on above:Performed By: #### CMP, LIPID, TSH #### [facility] [address] [place] [address] Dr. Lauren MatthewsProtein [Mass/Vol]7.2 g/dLNormal6.4-8.2[facility] Comment on above:Performed By: #### CMP, LIPID, TSH #### [facility] [address] [place] [address] Dr. Lauren MatthewsSodium [Moles/Vol]143 mmol/MQiotsj422-692Olp [facility] Comment on above:Performed By: #### CMP, LIPID, TSH #### [facility] [address] [place] [address] Dr. Lauren MatthewsUrea nitrogen [Mass/Vol]13.0 mg/dLNormal7.0-18.0The [facility] GeneralComment on above:Performed By: #### CMP, LIPID, TSH #### [facility] [address] [place] [address] Dr. Lauren MatthewsUrea nitrogen/Creatinine [Mass ratio]21.7 mg/mgThe [facility] GeneralComment on above:Performed By: #### CMP, LIPID, TSH #### [facility] [address] [place] [address] Dr. Lauren Chapman 81-80-9382QKY3.916 uIU/mLNormal0.358-3.740The [facility] GeneralComment on above:Performed By: #### CMP, LIPID, TSH #### [facility] [address], [place] [address] Dr. Lauren MatthewsCovid-19 PCR ([facility]VDFAIRLA[facility])on 81-46-8696OMSH-CoV-2 (COVID-19) RNA PRAVIN+probe Ql (Unsp spec)Not detectedNormalNOT DETECTEDThe [facility] Comment on above:Result Comment: When diagnostic testing is negative, the [...] for this test is supported by the [place] of Health and Human Service's declaration that circumstances exist to justify the emergency use of in vitro diagnostics for the detection and/or diagnosis of the virus that causes COVID-19. This EUA will remain in effect for the duration of the COVID-19 declaration justifying emergency of IVDs, unless it is terminated or revoked by the FDA (after which the test may no longer be used).Performed By: #### CVDTB #### [facility] [id number] Lauren MatthwesASYMPTOMATIC COVID-19 ANTIGENon 67-23-8548RWQ StatementSEE BELOW NormalThe [facility] on above:Result Comment: This test has not been FDA [...] declaration is terminated or authorization is revoked sooner.Performed By: #### CVDAGA #### [facility] [address], [place] [address] Dr. Lauren MatthewsSARS-CoV-2 (COVID-19) RNA PRAVIN+probe Ql (Unsp spec)NegativeNormal NEGATIVEThe [facility] GeneralComment on above:Result Comment: Negative results are presumptive. They do not preclude infection and should not be used as the sole basis for treatment decisions. Additional confirmatory testing by a molecular method should be considered.Performed By: #### CVDAGA #### [facility] [address], [place] [address] Dr. Lauren Matthews Vital Signs Date TimeVital SignValuePerforming SdcbdjuaoLjcyugyj76-71-5945 11:38-0400Body xywkhp316.64 cmOhio[facility]06-11-2025 11:38-0400Body mass index (BMI) [Ratio]32.9 kg/w1RusicwioaOhiohealth Hardin Memorial Hospital06-11-2025 11:38-0400Body mqzsyx65.58 kgOhiohealth Hardin Memorial Hospital06-11-2025 11:38-0400Diastolic blood mm[Hg][facility] 09-30-2024 11:38-0400Heart rate71 /[facility] 09-30-2024 11:38-0400Respiratory rate12 /[facility] 09-30-2024 11:38-0400Systolic blood iugkmaay617 mm[Hg][facility]03-26-2025 11:17-0400Body zlynpt701.64 cmOhiohealth [facility]in [facility] Hospital03-26-2025 11:17-0400Body mass index (BMI) [Ratio]32.8 kg/b5YrgyprbizOhiohealth Hardin Memorial Hospital03-26-2025 11:17-0400Body cgewne62.3 kgOhiohealth [facility]in [facility] Hospital03-26-2025 11:17-0400Diastolic blood frbbicgk589 mm[Hg][facility]03-26-2025 11:17-0400Diastolic blood suuajmwa60 mm[Hg] [facility]03-26-2025 11:17-0400Heart rate76 /[facility]03-26-2025 11:17-0400Respiratory rate12 /[facility]03-26-2025 11:17-0400Systolic blood uyvyqbbx621 mm[Hg] [facility]03-26-2025 11:17-0400Systolic blood dgczomoj210 mm[Hg][facility]03-15-2024 13:40-0400Body gaprdo628.64 cmOhiohealth Hardin [facility] Hospital03-15-2024 13:40-0400Body mass index (BMI) [Ratio]33 kg/x9OkrrahwvmOhiohealth Hardin Memorial Hospital03-15-2024 13:40-0400Body weight 93.04 kgOhiohealth Hardin Memorial Hospital03-15-2024 13:40-0400Diastolic blood lroirxll18 mm[Hg][facility]03-15-2024 13:40-0400Heart rate71 /[facility]03-15-2024 13:40-0400Respiratory rate12 /[facility]03-15-2024 13:40-0400Systolic blood ekzwzzzz753 mm[Hg][facility]08-03-2023 11:30-0400Body fnilsy091.64 cmBenjamin Ball Other [employer] Other 08-03-2023 11:30-0400Body mass index (BMI) [Ratio] 30.92 kg/l3Jtdqyeop Ball Other [employer] Other 08-03-2023 11:30-0400Body ljopku45.91 kgBenjamin Ball Other [employer] Other 08-03-2023 11:30-0400Diastolic blood qhqvyrmv18 mm[Hg] James Ball Other [employer] Other 08-03-2023 11:30-0400Respiratory rate12 /minBenjamin Ball Other noMedical [facility]imbursements of [employer] Other 08-03-2023 11:30-0400Systolic blood ndlzjsju825 mm[Hg] James Ball Other [employer] Other 05-01-2023 12:30-0400Body sggjsu933.64 cmBenjamin Ball Other [employer] Other 05-01-2023 12:30-0400Body mass index (BMI) [Ratio] 31.21 kg/s7Aswjfrqs Ball Other [employer] Other 05-01-2023 12:30-0400Body biznpj57.73 kgBenjamin Ball Other [employer] Other 05-01-2023 12:30-0400Diastolic blood uyhidvdl92 mm[Hg] James Ball Other [employer] Other 05-01-2023 12:30-0400Respiratory rate12 /minBenjamin Ball Other [employer] Other 05-01-2023 12:30-0400Systolic blood aiqkotai771 mm[Hg] James Ball Other [employer] Other 04-03-2023 12:30-0400Body .64 cmBenjamin Ball Other [employer] Other 04-03-2023 12:30-0400Body mass index (BMI) [Ratio] 30.92 kg/a1Wkfuuhnu Ball Other [employer] Other 04-03-2023 12:30-0400Body kajbtg48.91 kgBenjamin Ball Other noMedical [facility] of [employer] Other 04-03-2023 12:30-0400Diastolic blood wbasjsgw30 mm[Hg] James Ball Other [facility]je[facility] [employer] Other 04-03-2023 12:30-0400Respiratory rate12 /minBenjamin Ball Other [facility] [employer] Other 04-03-2023 12:30-0400Systolic blood epiysbyp238 mm[Hg] James Ball Other [facility] [employer] Other 03-06-2023 13:30-0500Body lncaom291.64 cmBenjamin Ball Other [facility] [employer] Other 03-06-2023 13:30-0500Body mass index (BMI) [Ratio] 31.89 kg/i0Ylfswbdb Ball Other [employer] Other 03-06-2023 13:30-0500Body .63 kgBenjamin Ball Other [employer] Other 03-06-2023 13:30-0500Diastolic blood zchomxab40 mm[Hg] James Ball Other [employer] Other 03-06-2023 13:30-0500Respiratory rate12 /minBenjamin Ball Other [employer] Other 03-06-2023 13:30-0500Systolic blood mm[Hg] James Ball Other [employer] Other Encounters Encounter DateEncounter TypeCare ProviderFacilityStart: 09-30-2024 End: 18-77-5307nmbnqhgahpPnwbpqafuMer[facility] Work Phone: Start: 09-30-2024 End: 95-63-9028Ejgnsfx encounter procedureFirmountain view regional medical center Physician GroupWadsworth[facility] Work Phone: Start: 08-06-2024 End: 84-08-0447Yhztkc erickheetEmhermelinda Toney MD Work Phone: [facility] DERMStart: 08-06-2024 End: 61-18-1466Hteunv flowsheetEmhermelinda Toney MD Work Phone: [facility] DERMStart: 08-06-2024 End: 16-15-7169gegcjhdalbELBYD Yin PETITTINot AvailableStart: 08-06-2024 End: 49-65-2590Tqemip outpatient visit 15 minutesEmily Yin Toney MD Work Phone: [facility]oms [facility] DERMComment on above:Seborrheic keratosis (Primary Dx); Capillary angioma; Lentigines; Sebaceous hyperplasia of face; Melanocytic nevus of trunk; Neoplasm of unspecified behavior of bone, soft tissue, and skinStart: 07-18-2024 Non-patient / Non-visitUn[facility] Phys[facility] GroupProv[facility] Work Phone: Start: 07-15-2024 End: 36-70-1302ushbcuylhrCquiklfrdMer[facility] Health [facility] Work Phone: Start: 07-15-2024 End: 83-76-4153Emnhytyhu for general adult medical examination without abnormal findingsMercy Healthtart: 07-15-2024 End: 46-42-2093Kqmmirp encounter procedureUn[facility] Health [facility] Physician GroupWadsworth-Ritt[facility] Work Phone: Start: 08-14-2023 End: 69-42-1965ylibyzslrqPTTNYK Lary More AvailableStart: 07-05-2023 End: 83-87-4828hdrymxqjxaZotrkvibaMer[facility] Health [facility] Work Phone: Start: 07-05-2023 End: 53-20-5394Chxfxdlbe for general adult medical examination without abnormal findingsMercy Healthtart: 07-05-2023 End: 53-24-0682Mwjnozl encounter procedureUn[facility] Work Phone: Start: 14-75-3354Kww-patient / Non-visitUn[facility] Work Phone: Start: 97-96-1087Yoj-patient / Non-visitUn[facility] Work Phone: Start: 05-24-2023 End: 70-56-9382itelpxrqgaWjywynqx Ball Other [employer]Magnetic Other Start: 81-15-3108Gbgajgbvm encounterBenjamin BallFPG Ball Medical ClinicStart: 03-07-2023 End: 04-50-9034sbrglictvfMfnwqnjw Ball Other noMagnetic Other Start: 90-52-5616Rgxoyektx encounterBenjamin BallFPG [facility] Medical ClinicStart: 02-28-2023 End: 35-85-1678ndmzebxcxpMktomznr Ball Other [employer]Magnetic Other Start: 49-48-1133Nlbjskvqx encounterBenjamin BallFPG [facility] Medical ClinicStart: 02-26-2023 End: 28-21-5364esnfoadhzqAvnepusn Ball Other [employer] Other Start: 45-42-3161Jdrexmtvf encounterBenjamin BallFPG [facility] Medical ClinicStart: 11-22-2022 End: 60-85-0440wgvswyylxhHdzfbknp Ball Other noM[employer] Other start: 04-76-9896Ypiqpl outpatient visit 15 minutes James BallFPG [facility] Medical ClinicStart: 10-09-2022 End: 53-16-3068cxsfuauvqvZowpdurs Ball Other [employer] Other Start: 76-95-3952Lxgfsyxbs encounterBenjamin BallFPG [facility] Medical ClinicStart: 08-20-2022 End: 16-72-8257nxjrbezjlzZakncdxy Ball Other noMedical [facility] of [employer] Other Start: 67-60-5413Ftigpe outpatient visit 15 minutes James BallFPG [facility] Medical ClinicStart: 07-23-2022 End: 22-10-0664cxljpzkebcApnzrnrb Ball Other noMedical [facility]imb[facility] of [employer] Other Start: 81-67-3640Hwejfm outpatient visit 15 minutes James BallFPG [facility] Medical ClinicStart: 60-39-7180Ladfexofs for general adult medical examination without abnormal findingsBENJAMIN BALJITAshtabula County Medical Center Start: 06-25-2022 End: 99-45-1142Aqaxoqtjb for general adult medical examination without abnormal findingsBENJAMIN BALLFacility:G5Ceyfh: 21-85-7328Jlofhlpf preventive med est patient 40-64yrsBenjamin BallFPG [facility] Medical ClinicStart: 06-25-2022 End: 12-11-7483ahdnmktvtzVLVPGWNB BALLFacility:N3Nmzth: 06-23-2022 End: 92-22-9555lumehpxlpsDwpzyool Ball Other noMagnetic Other Start: 57-42-5863Ofjwderxg for general adult medical examination without abnormal findingsBenjamin BallFPG [facility] Medical ClinicStart: 58-28-1595Tzbswloik encounterBenjamin BallFPG [facility] Medical ClinicStart: 06-22-2022 End: 54-49-7231kmawqqyevpXwwdqebh Ball Other NoMedical [facility]imburse[employer] of [employer] Other Start: 82-27-9527Xtuyhpxvw encounterJames Quintanilla Medical ClinicStart: 03-07-2022 End: 19-14-4805eyoitcwznrQJROUGFP EBERLYFacility:J4Uasxf: 01-15-2022 End: 57-37-4653bxvozzfeywGTUJXIOM EBERLYFacility:W2Ewtiw: 73-07-1851Egrny health examinationJames Quintanilla Other [employer] Other Procedures DateProcedureProcedure DetailPerforming ClinicianStart: 60-31-7254UGOC / NAIL BIOPSYEmhermelinda Toney MD Work Phone: Depression screeningJames Quintanilla Other Screening for malignant neoplasm of breastJames Quintanilla Other Plan of Treatment DateCare ActivityDetailAuthorStart: 08-10-2025 End: 21-62-8023Bomdiil encounter ovwjjjwby54/21/2026 11:30 AM EDT Office Visit [facility] [address] [place] [address] Lona Toney MD [address] [place] [address] [facility] DERMComprehensive metabolic 1999 panel - Serum or PlasmaOhiohealth Hardin Memorial HospitalComprehensive metabolic 1999 panel - Serum or PlasmaOhiohealth Hardin Memorial HospitalDermatopathology exam Dermatopathology exam Pathology and Cytology Timed Neoplasm of unspecified behavior of bone, soft tissue, and skin Release Upon Ordering for 1 Occurrences starting 08/06/2024[facility] Work Phone: comment on above:Release Upon Ordering for 1 Occurrences starting 08/06/2024MG Breast - bilateral ScreeningOhiohealth Hardin Memorial HospitalMG Breast - bilateral ScreeningOhiohealth [facility]in Memorial Hospital Microalbumin [Mass/volume] in UrineOrlando Health [facility] Immunizations Immunization DateImmunizationNotesCare HrdyeasoJmffokbb61-58-6591qoqavam and diphtheria toxoids, adsorbed, preservative free, for adult use (5 Lf of tetanus toxoid and 2 Lf of diphtheria toxoid)James Quintanilla Other [facility] Payers DatePayer CategoryPayerPolicy [id number] [id number] [id number] [id number] [id number] [id number] [id number] [id number] Social History DateTypeDetailFacilityStart: 08-14-2023 End: 83-68-1276Sfy Assigned At BirthElma [employer] Other Start: 07-04-2023 End: 59-19-1240Cpopeiv smoking status NHISNever smoked tobacco (finding) [facility]: 74-26-2697Aub Assigned At BirthFemale [facility]: 07-15-2024 End: [id number] (finding)[facility]: [id number] use and exposureSmokeless tobacco non-userNODE Healthcare Start: 08-14-2023 End: [id number] of Social functionNODE HealthcareStart: [id number] assigned at birthNot on [facility] Medical Equipment Procedure CodeEquipment CodeEquipment Original TextEquipment IdentifierDatesUSE TO TEST HOME BLOOD SUGAR EVERY DAY FOR 30 DAYSStart: 07-31-2023 Clinical Notes 06-23-2022 to 08-06-2024 Note Date & [id number] History of Present illness Narrative* Lona Toney MD - 08/06/2024 1:20 PM EDT Images from the original note were not included. Skin Check Location: Patient requests a skin examination from the waist up Dermatologic history: history of Basal Cell Carcinoma Last visit: 1 year ago Established patient of Salome Juarez PA-C All pertinent medical history, medications, and allergies were reviewed. General Exam: alert, oriented to person, place, and time, normal affect, well appearing Unaccompanied A complete skin exam was offered, pt declined. Areas not examined despite medical recommendation: From the waist down Scalp, Examined Head, Face Examined Neck Examined Chest Examined Back Examined Abdomen Examined Right arm Examined Left arm Examined Hands Examined Digits,nails: Examined Lymphatics: Not examined Skin Exam 1. SEBORRHEIC KERATOSIS Generalized Stuck on verrucous, variably pigmented papules and plaques. Patient was counseled regarding these benign growths. Removal is normally not necessary, but they may be removed if they are symptomatic or for cosmetic reasons. 2. CAPILLARY ANGIOMA (3) Abdomen (Lower Torso, Anterior), Chest (Upper Torso, Anterior), Mid Parietal Scalp Scattered cadena-red papule(s). The patient was informed that angiomas are benign growths on the the skin. No treatment is necessary. 3. LENTIGINES Head - Anterior (Face) Scattered wilhelm macules in sun-exposed areas. The patient was informed that lentigines are benign pigmented lesions that occur on sun-exposed andsun-damaged skin. No treatment is necessary. Recommended regular use of broad spectrum sunscreen SPF 30 or higher 4. SEBACEOUS HYPERPLASIA OF FACE Head - Anterior (Face) Small yellow papules with a central dell. Reassure, benign. Discussed these can be removed for a cosmetic fee with the hyfrecator if desired. 5. MELANOCYTIC NEVUS OF TRUNK Generalized Scattered benign appearing, regular brown to light brown melanocytic papules and macules with similar morphology Counseled regarding these benign growths. Rarely, a nevus can develop into malignant melanoma, so any changing nevi should be promptly re-evaluated. 6. NEOPLASM OF UNSPECIFIED BEHAVIOR OF BONE, SOFT TISSUE, AND SKIN Right Upper Back [place] pearly papule Lesion biopsy Type of biopsy: tangential Informed consent: discussed and consent obtained Informed consent comment: The risks and benefits of the biopsy were discussed. Risks include but are not limited to bleeding, infection, scarring, pain, and nerve damage. An opportunity to ask questions prior to the procedure was permitted and all questions were answered. Patient was prepped and draped in usual sterile fashion: area cleansed with alcohol. Anesthesia: the lesion was anesthetized in a standard fashion Anesthetic: 1% lidocaine w/ epinephrine 1-100,000 buffered w/ 8.4% NaHCO3 Instrument used: DermaBlade Hemostasis achieved with: electrodesiccation Outcome: patient tolerated procedure well Outcome comment: The specimen was placed in a prelabeled formalin container to be sent for pathology Post-procedure details: sterile dressing applied and wound care instructions given Post-procedure details comment: Emphasized need to contact clinic for any signs of infection, uncontrollable bleeding, or complications. Dressing type: bandage Additional details: Photo taken yes Amount of lidocaine used: 0.5 cc Specimen A - Dermatopathology exam Differential Diagnosis: BCC vs sebaceous hyperplasia vs sebaceoma Check Margins: No Size of lesion: 0.6 x 0.5 cm Next Visit: pending biopsy results documented in this encounterOzarks Community [id number] Evaluation note* Diagnosis Onset Date Resolution Status Admit Date Hyperlipemia, mixed acuteMarch 2024 11:13amHypothyroidacuteMarch 2024 11:13amObesity acuteMarch 2024 11:13amPrimary hypertensionacuteMarch 2024 11:13am Screening mammogram for breast canceracuteMarch 2024 11:13amWellness examinationnoneactiveMarch 2024 11:13amObesityacuteJune 2024 11:23am Primary hypertensionacuteJune 2024 11:23amType 2 diabetes mellitus with hyperglycemiaacuteJune 2024 11:23am [facility] Work Phone: [phone] 113-291902-02-2024 Evaluation note* Encounter Date Diagnosis Assessment Notes Treatment Notes Treatment Clinical Notes May, Controlled type 2 di abetes mellitus with hyperglycemia, without long-term current use of insulin (ICD-10 - E11.65) [email or web address] Other 11-16-2023 Evaluation note* Encounter Date Diagnosis Assessment Notes Treatment Notes Treatment Clinical Notes Feb, Type 2 diabetes blaine itus with hyperglycemia, without long-term current use of insulin (ICD-10 - E11.65) [email or web address] Other 11-09-2023 Evaluation note* Encounter Date Diagnosis Assessment Notes Treatment Notes Treatment Clinical Notes Feb, Type 2 diabetes blaine itus with hyperglycemia, without long-term current use of insulin (ICD-10 - E11.65) [email or web address] Other 11-07-2023 Evaluation note* Encounter Date Diagnosis Assessment Notes Treatment Notes Treatment Clinical Notes Feb, Type 2 diabetes blaine itus with hyperglycemia (ICD-10 - E11.65) This patient is following a comprehensive diabetic treatment plan. They are checking their feet daily and scheduling a dilated eye exam yearly. Goals: SBP<130, LDL<100, BS<140 AC, A1C<7% They are checking their BS daily, alternating times. Much improved w/ weight loss. D/c Trulicity and monitor FBS [email or web address] Other 08-03-2023 Evaluation note* Encounter Date Diagnosis Assessment Notes Treatment Notes Treatment Clinical Notes Nov, Primary hypertension (ICD-10 - I 10) This patient is instructed to consume a healthy, low-fat, low-salt diet. They are also encouraged to continue exercise to achieve/maintain a normal BMI. Patient is instructed on home BP measurements: - rest for 5 minutes w/o talking- positioned w/ feeton floor and arm supported- average best 2/3 readings w/ goal < 135-85 Increase Olmesartan to 40 Nov,Type 2 diabetes mellitus without complications (ICD-10 - E11.9)This patient is following a comprehensive diabetic treatment [...] Microalbumin, Dilated eye exam and Foot exam Nov,Other obesity due to excess calories (ICD-10 - E66.09)This patient has been instructed on a low-fat, high-fiber diet. They are instructed to reduce calories, portion sizes and snacks. It is recommended that they exercise for 30 minutes, 3-5 times weekly. Nov,ody mass index [BMI] 30.0-30.9, adult (ICD-10 - Z68.30) [email or web address] Other 05-01-2023 Evaluation note* Encounter Date Diagnosis Assessment Notes Treatment Notes Treatment Clinical Notes August, Type 2 diabetes blaine itus with hyperglycemia, without long-term current use of [...] which are reviewed at the office visit. August,Elevated BP without diagnosis of hypertension (ICD-10 - R03.0)This patient is instructed to consume a healthy, low-fat, low-salt diet. They are also encouraged to continue exercise to achieve/maintain a normal BMI. Initiate Olmesartand for BP control as well as renal protective benefits in diabetics. August,Other obesity due to excess calories (ICD-10 - E66.09)This patient has been instructed on a low-fat, high-fiber diet. They are instructed to reduce calories, portion sizes and snacks. It is recommended that they exercise for 30 minutes, 3-5 times weekly. Holding Adipex until BP controlled, then start 1/2 tab and monitor BP closely August,ody mass index [BMI] 31.0-31.9, adult (ICD-10 - Z68.31) [email or web address] Other 04-03-2023 Evaluation note* Encounter Date Diagnosis Assessment Notes Treatment Notes Treatment Clinical Notes Jul, Type 2 diabetes blaine itus with hyperglycemia, without long-term current use of insulin (ICD-10 - E11.65) Continue present treatment. Discussed use of GLP-1 to help w/ diabetes and weight loss Jul,Obesity (BMI 30-39.9) (ICD-10 - E66.9)This patient has been instructed on a low-fat, high-fiber diet. They are instructed to reduce calori es, portion sizes and snacks. It is recommended that they exercise for 30 minutes, 3-5 times weekly. Jul,Elevated BP without diagnosis of hypertension (ICD-10 - R03.0)This patient is instructed to consume a healthy, low-fat, low-salt diet. They are also encouraged to continue exercise to achieve/maintain a normal BMI. Check BP at home and update office w/ results. If BP remains elevated, instructed to call office and hold Adipex [email or web address] Other 03-06-2023 Evaluation note* Encounter Date Diagnosis Assessment Notes Treatment Notes Treatment Clinical Notes Jun, Wellness examination (ICD-10 - Z 00.00) Healthy diet and exercise. Reviewed age-appropriate preventive testing recommended. Reviewed labs - good results except for LDL, which is above goal of 100 Jun,Type 2 diabetes mellitus with hyperglycemia, without long-term current use of insulin (ICD-10 - E11.65)This patient is following a comprehensive diabetic treatment plan. They are checking their feet daily for calluses and nonhealing ulcers. They are being seen for yearly dilated eye examinations. Goals: SBP less than 130, LDL less than 100, FBS less than 140, AC and A1C less than 7%. They are checking their BS daily, will which are reviewed at the office visit. Jun,Obesity (BMI 30-39.9) (ICD-10 - E66.9)This patient has been instructed on a low-fat, high-fiber diet. They are instructed to reduce calori es, portion sizes and snacks. It is recommended that they exercise for 30 minutes, 3-5 times weekly. Jun,Screening mammogram for breast cancer (ICD-10 - Z12.31) [facility] [email or web address] Other 03-04-2023 Evaluation note* Encounter Date Diagnosis Assessment Notes Treatment Notes Treatment Clinical Notes Jun, Wellness examination (ICD-10 - Z 00.00) [facility] [email or web address] Other Evaluation noteNo InformationNort Twilio Other Evaluation note* Diagnosis Onset Date Resolution Status Hyperlipemia, mixed acuteHypothyroidacutePrimary hypertensionacuteScreening mammogram for breast cancernoneactiveL[facility] examinationnonD[facility] Work Phone: Evaluation note* Diagnosis Onset Date Resolution Status Admit Date Hyperlipemia, mixed acuteMarch 2024 11:13amHypothyroidacuteMarch 2024 11:13amObesity acuteMarch 2024 11:13amPrimary hypertensionacuteMarch 2024 11:13am Screening mammogram for breast canceracuteMarch 2024 11:13amWellness examinationnoneactive[facility] 20[facility] 11:13am [facility] Work Phone: Evaluation note* Diagnosis Seborrheic keratosis- Primary Capillary angioma Nevus, non-neoplastic Lentigines Sebaceous hyperplasia of face Melanocytic nevus of trunk Benign neoplasm of skin of trunk, except scrotum Neoplasm of unspecified behavior of bone, soft tissue, and skin documented in this encounter [facility] HealthcareHistory general Narrative - Reported* Type Description Date Medical History Nausea Medical HistoryControlled type 2 diabetes mellitus with hyperglycemia, without long-term current use of insulinMedical HistoryEssential hypertensionMedical HistoryAcquired autoimmune hypothyroidismMedical HistoryLeukopeniaMedical HistoryHyperlipemia, mixedMedical HistoryIdiopathic thrombocytopeniaMedical HistoryPrimary osteoarthritis of left hipSurgical HistoryColonoscopy04/2019 Surgical HistoryTAH Left02/25/2013Hospitalization Historysee surgical history [email or web address] Other Summary Purpose Family History Relationship Condition Age at Onset Recorded Date/T clary brother Heart disease Unknown Diabetes mellitusUnknownNot SpecifiedHeart diseaseUnknown Relationship Condition Age at Onset Recorded Date/T clary brother Heart disease Unknown Diabetes mellitusUnknownmotherHeart diseaseUnknown Advance Directives Advance Directive Response Recorded Date/ Time Advance Directives No May 14, 2023 1:15pm Chief Complaint and Reason for Visit Chief Complaint Amb Documentation Amb Documentation WellnessReason for VisitHyperlipemia, mixed Hypothyroid Primary hypertension Screening mammogram for breast cancer Wellness examination Chief Complaint Admit Date wellness July 15, 2024 11: 13am Reason for Visit Admit Date Hyperlipemia, mixed July 15, 2024 11: 13am Hypothyroid July 15, 2024 11: 13am Obesity July 15, 2024 11: 13am Primary hypertension July 15, 2024 11 :13am Screening mammogram for breast cancer [facility] 2024 11:13am Wellness examination July 15, 2024 11 :13am Chief Complaint Admit Date wellness July 15, 2024 11: 13am 3 month f/u September 30, 2024 11:2 3am Reason for Visit Admit Date Hyperlipemia, mixed July 15, 2024 11: 13am Hypothyroid July 15, 2024 11: 13am Obesity July 15, 2024 11: 13am Primary hypertension July 15, 2024 11 :13am Screening mammogram for breast cancer [facility] 2024 11:13am Wellness examination July 15, 2024 11 :13am Obesity September 30, 2024 11:2 3am Primary hypertension September 30, 2024 11: 23am Type 2 diabetes mellitus with hyperglyce mamadou September 30, 2024 11:23am Additional Source Comments INFORMATION SOURCE (unrecogn ized section and content) DATE CREATED AUTHOR 06/27/2022 [facility] DATE CREATED AUTHOR VICKI MENSAH 08/08/2024 [facility] EPIC REASON FOR VISIT (unrecogniz ed section and content) ReasonCommentsSkin Check Care Teams (unrecognized sec tion and content) Team Status: Active Member Role Status Dates James Quintanilla DO Primary Care Provider Active Team Status: Inactive Member Role Status Dates James Quintanilla DO Primary Care Provide r, Attending Provider Active Start: July 15, 2024 End: July 15, 2024 Team Status: Active Member Role Status Dates James Quintanilla DO Primary Care Provider Active Start: June 24, 2023 Maria M Garcia ProviderActiveStart: June 24, 2023 Team Status: Active Member Role Status Dates James Quintanilla DO Primary Care Provider Active Start: July 01, 2023 Maria M Garcia ProviderActiveStart: July 01, 2023 Team Status: Inactive Member Role Status Dates James Quintanilla DO Primary Care Provide r, Attending Provider Active Start: July 05, 2023 End: July 05, 2023Team MemberRelationshipSpecialtyStart DateEnd Date James Quintanilla MD [facility]08/07/23Team MemberRelationshipSpecialtyStart DateEnd Date James Quintanilla MD [facility]08/07/23 Team Status: Active Member Role Status Dates James Quintanilla DO Primary Care Provide r, Attending Provider Active Start: July 18, 2024 Team Status: Inactive Member Role Status Dates James Quintanilla DO Primary Care Provide r, Attending Provider Active Start: September 30, 2024 End: September 30, 2024 Goals (unrecognized section and content) Goals [...] BE BASED ON THE PRIMARY CLINICAL RECORDS. [employer] [facility]. provides no warranty or guarantee of the accuracy or completeness of information in this document.
== END 2025-02-11 07:52 | disposition home or self-care (01) ==
LOC: RAD 07:51
PROVIDERS: PCP Internal Medicine; Visit Provider Physician Assistant
DX: M25.571 Pain in right ankle and joints of right foot (principal)
CPT/HCPCS: 73610